=== PATIENT | male | born 1965 | race Caucasian/White ===

== ENCOUNTER → 2016-06-28 | Outpatient (REF) | payer MEDICARE, OTHER ==
[~2016-06-28] MED LIST: /CELE20CA PO; AMBI10TA PO; BIFLEX; CALCIUM CITRATE PO; FERR325T PO; FLEXERIL PO; LIDO5DIS; NEUR300C; NEUR300C PO; PRIL20CA PO; SKEL800T5; THERGRAN; THERGRAN PO; TYLENOL PM PO; VICO5TAB PO; VITAMIN; VITAMIN D PO; VITAMIN D50000 UNT; WELL100T PO; ZOLO50TA PO; [UNRECOGNIZED DRUG - CODE] PO
== END ==
LOC: M SFHCPLAZ 11:25
PROVIDERS: ATTEND Family Medicine
DX: E78.2 Mixed hyperlipidemia (principal); I10 Essential (primary) hypertension; Z53.8 Procedure and treatment not carried out for other reasons

== ENCOUNTER → 2016-07-03 | Outpatient (CLI) | payer MEDICARE, OTHER ==
[2016-07-03 11:49] LABS: ALKALINE PHOSPHATASE 91 U/L (45-117); ALT/SGPT 21 U/L (12-78); ANION GAP 9 MEQ/L (8-16); AST/SGOT 14 U/L (15-37); BILIRUBIN,TOTAL 0.6 MG/DL (0.2-1.0); BLOOD UREA NITROGEN 14 MG/DL (7-18); CALCIUM LEVEL 8.6 MG/DL (8.5-10.1); CARBON DIOXIDE LEVEL 25 MEQ/L (21-32); CHLORIDE LEVEL 111 MEQ/L (98-107); CHOLESTEROL LEVEL 187 MG/DL (<200); CREATININE FOR GFR 1.26 MG/DL (0.70-1.30); GLOMERULAR FILTRATION RATE > 60.0 (>56); GLUCOSE, FASTING 87 MG/DL (70-105); POTASSIUM SERUM 4.4 MEQ/L (3.5-5.1); SODIUM LEVEL 145 MEQ/L (136-145); TRIGLYCERIDES LEVEL 127 MG/DL (<150)
[2016-07-03 11:50] LABS: ALBUMIN 4.1 GM/DL (3.2-5.2); ALBUMIN/GLOBULIN RATIO 1.64 (1.00-1.93); MAGNESIUM LEVEL 1.9 MG/DL (1.8-2.4); TOTAL PROTEIN 6.6 GM/DL (6.4-8.2)
== END | disposition home or self-care (01) ==
LOC: M LAB 10:12
PROVIDERS: ATTEND Family Medicine
DX: E78.2 Mixed hyperlipidemia (principal); I10 Essential (primary) hypertension

== ENCOUNTER → 2016-11-11 | Outpatient (REF) | payer MEDICARE, OTHER ==
[2016-11-11 14:09] LABS: ALBUMIN 3.8 GM/DL (3.2-5.2); ALBUMIN/GLOBULIN RATIO 1.46 (1.00-1.93); ALKALINE PHOSPHATASE 91 U/L (45-117); ALT/SGPT 25 U/L (12-78); ANION GAP 7 MEQ/L (8-16); AST/SGOT 16 U/L (15-37); BILIRUBIN,TOTAL 0.5 MG/DL (0.2-1.0); BLOOD UREA NITROGEN 15 MG/DL (7-18); CALCIUM LEVEL 8.6 MG/DL (8.5-10.1); CARBON DIOXIDE LEVEL 26 MEQ/L (21-32); CHLORIDE LEVEL 110 MEQ/L (98-107); CREATININE FOR GFR 1.22 MG/DL (0.70-1.30); GLOMERULAR FILTRATION RATE > 60.0 (>56); GLUCOSE, FASTING 80 MG/DL (70-105); POTASSIUM SERUM 4.4 MEQ/L (3.5-5.1); SODIUM LEVEL 143 MEQ/L (136-145); TOTAL PROTEIN 6.4 GM/DL (6.4-8.2)
[2016-11-11 14:27] LABS: BASO % 0.7 % (0.0-1.0); EOS # 0.2 K/mm3 (0.0-0.50); EOS % 2.6 % (0.0-3.0); LARGE UNSTAINED CELL # 0.2 K/mm3 (0.0-0.4); LARGE UNSTAINED CELL % 2.3 % (0.0-4.0); LYMPH # 1.7 K/mm3 (1.5-4.5); LYMPH % 26.9 % (24.0-44.0); MEAN CORPUSCULAR HEMOGLOBIN 32.6 pg (27.0-33.0); MEAN CORPUSCULAR HGB CONC 33.6 g/dl (32.0-36.5); MONO # 0.5 K/mm3 (0.0-0.8); MONO % 7.3 % (0.0-5.0); NEUTROPHILS # 3.8 K/mm3 (1.8-7.7); NEUTROPHILS % 60.2 % (36.0-66.0); PLATELET COUNT, AUTOMATED 203 k/mm3 (150-450); RED CELL DISTRIBUTION WIDTH 12.3 % (11.5-14.5); WHITE BLOOD COUNT 6.3 K/mm3 (4.0-10.0)
== END ==
LOC: M SFHCPLAZ 10:31
PROVIDERS: ATTEND Family Medicine
DX: E78.2 Mixed hyperlipidemia (principal); Z12.5 Encounter for screening for malignant neoplasm of prostate; E55.9 Vitamin D deficiency, unspecified; Z79.899 Other long term (current) drug therapy
CPT/HCPCS: 80053; 82306; 83036; 83970; 85025; 86803; G0103; G0463

== ENCOUNTER → 2016-12-31 | Outpatient (CLI) | payer MEDICARE, BC, OTHER ==
[~2016-12-31] VITALS: Ht 177.8 cm; Wt 117.9 kg
[~2016-12-31] MED LIST changes: +AZEL0.1S3; +BUPR150T3 PO; +CARV3.12 PO; +D 50CAP PO; +FERR325T3 PO; +LIDOCAINE 2% INJ 100 MG/5 ML SDV (FOR ANES.) As Ordered ONE; +LYRI150C PO; +MOVA1TAB2 PO; +NS 1,000 ML IV ONE; +OMEP40CA2 PO; +PERC10TA26 PO; +PROPOFOL 500 MG/50 ML VIAL As Ordered ONE; +RIZA5TAB PO; +SERT-138 PO; +SERT50TA PO; +TIZA4CAP3 PO; +VITA10002 PO; +ZOLP10TA2 PO
--- NOTE | 2016-12-31 13:22 | ROOR ---
Patient Name: Jamaal Kilgore Procedure Date: 12/31/2016 12:48 PM Date of : 1965 Age: 51 Room: [facility] Gender: Male Note Status: Finalized Procedure: Colonoscopy Indications: Screening for colorectal malignant neoplasm Providers: Harjeet JACKSON MD Referring MD: Abhijit Briceño MD Requesting Provider: Medicines: Monitored Anesthesia Care Complications: No immediate complications. Procedure: Pre-Anesthesia Assessment: - The heart rate, respiratory rate, oxygen saturations, blood pressure, adequacy of pulmonary ventilation, and response to care were monitored throughout the procedure. The Colonoscope was introduced through the anus and advanced to the cecum, identified by appendiceal orifice and ileocecal valve. The colonoscopy was performed without difficulty. The patient tolerated the procedure well. The quality of the bowel preparation was good. Findings: The perianal and digital rectal examinations were normal. Two sessile polyps were found in the ascending colon and cecum. The polyps were 2 to 4 mm in size. These polyps were removed with a cold snare. Resection and retrieval were complete. A 5 mm polyp was found in the rectum. The polyp was sessile. The polyp was removed with a cold snare. Resection and retrieval were complete. To stop active bleeding, two hemostatic clips were successfully placed. There was no bleeding at the end of the procedure. Internal hemorrhoids were found during retroflexion. The hemorrhoids were medium-sized. The exam was otherwise without abnormality on direct and retroflexion views. Impression: - Two 2 to 4 mm polyps in the ascending colon and in the cecum, removed with a cold snare. Resected and retrieved. - One 5 mm polyp in the rectum, removed with a cold snare. Resected and retrieved. Clips were placed. - Internal hemorrhoids. - The colonoscopy was otherwise normal on direct and retroflexion views. Recommendation: - Telephone endoscopist for pathology results in 2 weeks. - If the pathology report reveals adenomatous tissue, then repeat the colonoscopy for surveillance in 3 years. - If the pathology report indicates hyperplastic polyp, then repeat colonoscopy for screening purposes in 10 years. Harjeet Jackson MD Harjeet JACKSON MD 12/31/2016 1:22:17 PM This report has been signed electronically. Number of Addenda: 0 Note Initiated On: 12/31/2016 12:48 PM Estimated Blood Loss: Estimated blood loss: none.
[2016-12-31 13:42] VITALS: BP 124/80
== END ==
LOC: M OPP 11:18
PROVIDERS: ATTEND Internal Medicine Gastroenterology
DX: Z12.11 Encounter for screening for malignant neoplasm of colon (principal); D12.2 Benign neoplasm of ascending colon; D12.0 Benign neoplasm of cecum; D12.8 Benign neoplasm of rectum; K64.8 Other hemorrhoids; I10 Essential (primary) hypertension; G47.30 Sleep apnea, unspecified; K21.9 Gastro-esophageal reflux disease without esophagitis; K59.04 Chronic idiopathic constipation; G43.909 Migraine, unspecified, not intractable, without status migrainosus; F32.9 Major depressive disorder, single episode, unspecified; F41.9 Anxiety disorder, unspecified; M13.89 Other specified arthritis, multiple sites; Z98.84 Bariatric surgery status; Z79.891 Long term (current) use of opiate analgesic; Z79.899 Other long term (current) drug therapy; Z88.0 Allergy status to penicillin; Z88.5 Allergy status to narcotic agent; Z88.1 Allergy status to other antibiotic agents

== ENCOUNTER → 2017-04-01 | Outpatient (CLI) | payer MEDICARE, BC, OTHER ==
[~2017-04-01] MED LIST changes: -LIDOCAINE 2% INJ 100 MG/5 ML SDV (FOR ANES.) As Ordered ONE; -NS 1,000 ML IV ONE; -PROPOFOL 500 MG/50 ML VIAL As Ordered ONE
[2017-04-01 15:08] LABS: BASO % 0.6 % (0.0-1.0); EOS # 0.1 10^3/uL (0.0-0.50); EOS % 1.8 % (0.0-3.0); IMMATURE GRANULOCYTE % 0.1 % (0-0); LYMPH # 1.7 10^3/uL (1.5-4.5); LYMPH % 25.5 % (24.0-44.0); MEAN CORPUSCULAR HEMOGLOBIN 31.7 pg (27.0-33.0); MEAN CORPUSCULAR HGB CONC 33.8 g/dl (32.0-36.5); MEAN CORPUSCULAR VOLUME 93.9 fl (80.0-96.0); MONO # 0.7 10^3/uL (0.0-0.8); MONO % 9.8 % (0.0-5.0); NEUTROPHILS # 4.2 10^3/uL (1.8-7.7); NEUTROPHILS % 62.2 % (36.0-66.0); PLATELET COUNT, AUTOMATED 180 10^3/uL (150-450); RED CELL DISTRIBUTION WIDTH 12.1 % (11.5-14.5); WHITE BLOOD COUNT 6.7 10^3/uL (4.0-10.0)
[2017-04-01 16:23] LABS: ALBUMIN/GLOBULIN RATIO 1.54 (1.00-1.93); ALKALINE PHOSPHATASE 97 U/L (45-117); ALT/SGPT 23 U/L (12-78); ANION GAP 8 MEQ/L (8-16); AST/SGOT 14 U/L (15-37); BILIRUBIN,TOTAL 0.6 MG/DL (0.2-1.0); BLOOD UREA NITROGEN 15 MG/DL (7-18); CALCIUM LEVEL 8.9 MG/DL (8.5-10.1); CARBON DIOXIDE LEVEL 27 MEQ/L (21-32); CHLORIDE LEVEL 107 MEQ/L (98-107); CREATININE FOR GFR 1.09 MG/DL (0.70-1.30); GLOMERULAR FILTRATION RATE > 60.0 (>56); GLUCOSE, FASTING 79 MG/DL (70-105); POTASSIUM SERUM 4.6 MEQ/L (3.5-5.1); SODIUM LEVEL 142 MEQ/L (136-145); TOTAL PROTEIN 6.6 GM/DL (6.4-8.2)
== END ==
LOC: M WUC 14:03
PROVIDERS: ATTEND Family Medicine
DX: E78.2 Mixed hyperlipidemia (principal); Z12.5 Encounter for screening for malignant neoplasm of prostate; E55.9 Vitamin D deficiency, unspecified
CPT/HCPCS: 36415; 80053; 82306; 83036; 83970; 85025; 86803; G0103

== ENCOUNTER → 2017-07-28 | Outpatient (CLI) | payer OTHER ==
[~2017-07-28] MED LIST changes: -/CELE20CA PO; -AMBI10TA PO; -AZEL0.1S3; -BIFLEX; -BUPR150T3 PO; -CALCIUM CITRATE PO; -CARV3.12 PO; -D 50CAP PO; -FERR325T PO; -FERR325T3 PO; -FLEXERIL PO; -LIDO5DIS; -LYRI150C PO; -MOVA1TAB2 PO; -NEUR300C; -NEUR300C PO; -OMEP40CA2 PO; -PERC10TA26 PO; -PRIL20CA PO; +PROHANCE 279.3MG/ML 15ML VIAL (A9576) As Ordered; +PROHANCE 279.3MG/ML 5ML VIAL (A9576) As Ordered; -RIZA5TAB PO; -SERT-138 PO; -SERT50TA PO; -SKEL800T5; -THERGRAN; -THERGRAN PO; -TIZA4CAP3 PO; -TYLENOL PM PO; -VICO5TAB PO; -VITA10002 PO; -VITAMIN; -VITAMIN D PO; -VITAMIN D50000 UNT; -WELL100T PO; -ZOLO50TA PO; -ZOLP10TA2 PO; -[UNRECOGNIZED DRUG - CODE] PO
== END ==
LOC: M RAD 10:58
DX: M48.10 Ankylosing hyperostosis [Forestier], site unspecified (principal)

== ENCOUNTER → 2017-08-13 | Outpatient (CLI) | payer MEDICARE, OTHER ==
[2017-08-13 20:04] LABS: BASO # 0.1 10^3/uL (0.0-0.2); BASO % 0.7 % (0.0-1.0); EOS # 0.1 10^3/uL (0.0-0.50); EOS % 1.6 % (0.0-3.0); HEMATOCRIT 47.6 % (42.0-52.0); HEMOGLOBIN 15.5 g/dl (14.0-18.0); IMMATURE GRANULOCYTE % 0.3 % (0-3.0); LYMPH # 2.1 10^3/uL (1.5-4.5); LYMPH % 24.3 % (24.0-44.0); MEAN CORPUSCULAR HEMOGLOBIN 30.9 pg (27.0-33.0); MEAN CORPUSCULAR HGB CONC 32.6 g/dl (32.0-36.5); MONO # 0.7 10^3/uL (0.0-0.8); MONO % 7.8 % (0.0-5.0); NEUTROPHILS # 5.7 10^3/uL (1.8-7.7); NEUTROPHILS % 65.3 % (36.0-66.0); PLATELET COUNT, AUTOMATED 264 10^3/uL (150-450); RED BLOOD COUNT 5.01 10^6/uL (4.30-6.10); RETIC HEMOGLOBIN EQUIVALENT 37.4 pg (24-36); RETICULOCYTE # 67.1 10^9/L (17-77); RETICULOCYTE % 1.3 % (0.5-1.5); WHITE BLOOD COUNT 8.8 10^3/uL (4.0-10.0)
[2017-08-13 20:05] LABS: HEMATOCRIT 47.6 % (42.0-52.0)
[2017-08-13 20:41] LABS: VITAMIN B12 LEVEL 1245 PG/ML (247-911)
[2017-08-13 20:43] LABS: ALBUMIN 4.4 GM/DL (3.2-5.2); ALBUMIN/GLOBULIN RATIO 1.52 (1.00-1.93); ALKALINE PHOSPHATASE 104 U/L (45-117); ALT/SGPT 26 U/L (12-78); ANION GAP 7 MEQ/L (8-16); AST/SGOT 18 U/L (7-37); BILIRUBIN,TOTAL 0.5 MG/DL (0.2-1.0); BLOOD UREA NITROGEN 14 MG/DL (7-18); CARBON DIOXIDE LEVEL 29 MEQ/L (21-32); CHLORIDE LEVEL 105 MEQ/L (98-107); CREATININE FOR GFR 1.11 MG/DL (0.70-1.30); FREE T4 0.85 NG/DL (0.76-1.46); GLOMERULAR FILTRATION RATE > 60.0 (>56); GLUCOSE, FASTING 85 MG/DL (70-100); MAGNESIUM LEVEL 1.9 MG/DL (1.8-2.4); POTASSIUM SERUM 4.4 MEQ/L (3.5-5.1); SODIUM LEVEL 141 MEQ/L (136-145); TOTAL PROTEIN 7.3 GM/DL (6.4-8.2)
[2017-08-15 13:03] LABS: PRETREATED FOLATE FOR RBCFOL 10.1 NG/ML; RBC FOLATE 445.6 NG/ML (280-791)
== END ==
LOC: M WUC 15:45
DX: E53.8 Deficiency of other specified B group vitamins (principal); D50.9 Iron deficiency anemia, unspecified; I10 Essential (primary) hypertension; E78.2 Mixed hyperlipidemia; M47.816 Spondylosis without myelopathy or radiculopathy, lumbar region; Z98.84 Bariatric surgery status
CPT/HCPCS: 83735

== ENCOUNTER → 2017-12-04 | Outpatient (CLI) | payer MEDICARE, BC, OTHER ==
[2017-12-04 17:05] LABS: ALBUMIN/GLOBULIN RATIO 1.38 (1.00-1.93); ALKALINE PHOSPHATASE 101 U/L (45-117); ALT/SGPT 26 U/L (12-78); ANION GAP 9 MEQ/L (8-16); AST/SGOT 15 U/L (7-37); BILIRUBIN,TOTAL 0.4 MG/DL (0.2-1.0); BLOOD UREA NITROGEN 13 MG/DL (7-18); CALCIUM LEVEL 8.5 MG/DL (8.5-10.1); CARBON DIOXIDE LEVEL 26 MEQ/L (21-32); CHLORIDE LEVEL 109 MEQ/L (98-107); CHOLESTEROL LEVEL 193 MG/DL (<200); CHOLESTEROL RISK RATIO 3.385 (<5); CPK CREATINE PHOSPHOKINASE 99 U/L (39-308); CREATININE FOR GFR 1.11 MG/DL (0.70-1.30); GLOMERULAR FILTRATION RATE > 60.0 (>56); GLUCOSE, FASTING 97 MG/DL (70-100); HDL CHOLESTEROL 57 MG/DL (>40); LDL CHOLESTEROL 110.8 MG/DL (<100); NON-HDL-C 136 MG/DL; POTASSIUM SERUM 4.5 MEQ/L (3.5-5.1); PSA SCREENING 1.31 NG/ML (< 4.0); SODIUM LEVEL 144 MEQ/L (136-145); TOTAL PROTEIN 6.9 GM/DL (6.4-8.2); TRIGLYCERIDES LEVEL 126 MG/DL (<150); URIC ACID 5.9 MG/DL (3.5-7.2)
[2017-12-04 17:10] LABS: PTH INTACT 140.2 PG/ML (18.5-88.0); TOTAL 25(OH) VITAMIN D 36.5 NG/ML (30.0-100.0)
[2017-12-04 17:11] LABS: VITAMIN B12 LEVEL 754 PG/ML (247-911)
[2017-12-07 00:10] LABS: AMPHETAMINE SCREEN, URINE Negative ng/mL (Cutoff=1000); BARBITURATES SCREEN, URINE Negative ng/mL (Cutoff=200); BENZODIAZEPINES, URINE SCREEN Negative ng/mL (Cutoff=200); CANNABINOID SCREEN, URINE Negative ng/mL (Cutoff=20); COCAINE SCREEN, URINE Negative ng/mL (Cutoff=300); CREATININE, URINE 135.9 mg/dL (20.0-300.0); FENTANYL URINE SCREEN Negative pg/mL (Cutoff=2000); METHADONE, URINE SCREEN Negative ng/mL (Cutoff=300); OPIATE SCREEN, URINE Negative ng/mL (Cutoff=300); OXYCODONE, SCREEN, URINE Negative ng/mL (Cutoff=100); PCP SCREEN, URINE Negative ng/mL (Cutoff=25); SPECIFIC GRAVITY, URINE 1.018 (.)
== END ==
LOC: M LAB 16:02
DX: E78.2 Mixed hyperlipidemia (principal); N18.2 Chronic kidney disease, stage 2 (mild); Z12.5 Encounter for screening for malignant neoplasm of prostate; E55.9 Vitamin D deficiency, unspecified; M79.641 Pain in right hand; E53.8 Deficiency of other specified B group vitamins; G47.00 Insomnia, unspecified; Z68.36 Body mass index [BMI] 36.0-36.9, adult
CPT/HCPCS: 82550

== ENCOUNTER → 2018-04-07 | Outpatient (REF) | payer MEDICARE, OTHER ==
[2018-04-07 15:53] LABS: BASO # 0.1 10^3/uL (0.0-0.2); BASO % 0.9 % (0.0-1.0); EOS # 0.2 10^3/uL (0.0-0.50); EOS % 2.5 % (0.0-3.0); HEMATOCRIT 45.7 % (42.0-52.0); HEMOGLOBIN 15.4 g/dl (13.5-17.5); IMMATURE GRANULOCYTE % 0.1 % (0-3.0); LYMPH # 1.9 10^3/uL (1.5-4.5); LYMPH % 27.4 % (24.0-44.0); MEAN CORPUSCULAR HEMOGLOBIN 31.8 pg (27.0-33.0); MEAN CORPUSCULAR HGB CONC 33.7 g/dl (32.0-36.5); MEAN CORPUSCULAR VOLUME 94.4 fl (80.0-96.0); MONO # 0.5 10^3/uL (0.0-0.8); MONO % 6.7 % (0.0-5.0); NEUTROPHILS # 4.3 10^3/uL (1.8-7.7); NEUTROPHILS % 62.4 % (36.0-66.0); PLATELET COUNT, AUTOMATED 211 10^3/uL (150-450); RED BLOOD COUNT 4.84 10^6/uL (4.30-6.10); RED CELL DISTRIBUTION WIDTH 12.3 % (11.5-14.5); RETIC HEMOGLOBIN EQUIVALENT 35.7 pg (24-36); RETICULOCYTE # 56.6 10^9/L (17-77); RETICULOCYTE % 1.2 % (0.5-1.5); WHITE BLOOD COUNT 6.9 10^3/uL (4.0-10.0)
[2018-04-07 15:56] LABS: HEMATOCRIT 45.7 % (42.0-52.0)
[2018-04-07 16:26] LABS: ALBUMIN 4.5 GM/DL (3.2-5.2); ALKALINE PHOSPHATASE 107 U/L (45-117); ALT/SGPT 23 U/L (12-78); ANION GAP 5 MEQ/L (8-16); AST/SGOT 17 U/L (7-37); BILIRUBIN,TOTAL 0.5 MG/DL (0.2-1.0); BLOOD UREA NITROGEN 11 MG/DL (7-18); C REACTIVE PROTEIN QUANTITATIV < 0.30 MG/DL (0.00-0.30); CALCIUM LEVEL 9.1 MG/DL (8.5-10.1); CARBON DIOXIDE LEVEL 29 MEQ/L (21-32); CHLORIDE LEVEL 108 MEQ/L (98-107); CHOLESTEROL LEVEL 194 MG/DL (<200); CHOLESTEROL RISK RATIO 3.592 (<5); CPK CREATINE PHOSPHOKINASE 97 U/L (39-308); CREATININE FOR GFR 1.07 MG/DL (0.70-1.30); ESTIMATED AVERAGE GLUCOSE 97 MG/DL (60-110); GLOMERULAR FILTRATION RATE > 60.0 (>56); GLUCOSE, FASTING 78 MG/DL (70-100); HDL CHOLESTEROL 54 MG/DL (>40); LDL CHOLESTEROL 110 MG/DL (<100); MAGNESIUM LEVEL 2.1 MG/DL (1.8-2.4); NON-HDL-C 140 MG/DL; POTASSIUM SERUM 4.9 MEQ/L (3.5-5.1); SODIUM LEVEL 142 MEQ/L (136-145); TRIGLYCERIDES LEVEL 151 MG/DL (<150)
[2018-04-07 17:00] LABS: PTH INTACT 93.8 PG/ML (18.5-88.0); TOTAL 25(OH) VITAMIN D 30.3 NG/ML (30.0-100.0)
== END ==
LOC: M SFHCPLAZ 13:44
DX: E55.9 Vitamin D deficiency, unspecified (principal); I12.9 Hypertensive chronic kidney disease with stage 1 through stage 4 chronic kidney disease, or unspecified chronic kidney disease; N18.2 Chronic kidney disease, stage 2 (mild); E78.2 Mixed hyperlipidemia; Z79.899 Other long term (current) drug therapy
CPT/HCPCS: 82550

== ENCOUNTER → 2018-04-07 | Outpatient (CLI) | payer MEDICARE, OTHER | LOC: M WUC 15:03 | DX: M47.24 Other spondylosis with radiculopathy, thoracic region (principal); M25.78 Osteophyte, vertebrae; E55.9 Vitamin D deficiency, unspecified; I12.9 Hypertensive chronic kidney disease with stage 1 through stage 4 chronic kidney disease, or unspecified chronic kidney disease; N18.2 Chronic kidney disease, stage 2 (mild); E78.2 Mixed hyperlipidemia; Z79.899 Other long term (current) drug therapy; Z23 Encounter for immunization | CPT/HCPCS: 72072; 82550 ==

== ENCOUNTER → 2018-04-29 | Outpatient (CLI) | payer MEDICARE, BC, OTHER | LOC: M RAD 17:46 | DX: M47.24 Other spondylosis with radiculopathy, thoracic region (principal); M51.24 Other intervertebral disc displacement, thoracic region | CPT/HCPCS: 72146 ==

== ENCOUNTER 2018-08-23 13:14 | Emergency (ER) | payer MEDICARE, BC, OTHER ==
[~2018-08-23] VITALS: Ht 177.8 cm; Wt 113.6 kg
[~2018-08-23 13:14] MED LIST changes: +/CELE20CA PO; +AMBI10TA PO; +AZEL0.1S3; +BIFLEX; +BUPR150T3 PO; +CALCIUM CITRATE PO; +CARV3.12 PO; +D 50CAP PO; +FERR325T PO; +FERR325T3 PO; +FLEXERIL PO; +LIDO5DIS; +LYRI150C PO; +MOVA1TAB2 PO; +NEUR300C; +NEUR300C PO; +OMEP40CA2 PO; +PERC10TA26 PO; +PRIL20CA PO; -PROHANCE 279.3MG/ML 15ML VIAL (A9576) As Ordered; -PROHANCE 279.3MG/ML 5ML VIAL (A9576) As Ordered; +RIZA5TAB PO; +SERT-138 PO; +SERT50TA PO; +SKEL800T5; +THERGRAN; +THERGRAN PO; +TIZA4CAP PO; +TYLENOL PM PO; +VICO5TAB PO; +VITA10002 PO; +VITAMIN; +VITAMIN D PO; +VITAMIN D50000 UNT; +WELL100T PO; +ZOLO50TA PO; +ZOLP10TA2 PO; +[UNRECOGNIZED DRUG - CODE] PO
[2018-08-23] MEDS ORDERED: RAMI1CAP24 PO (13:27)
[2018-08-23] MEDS ORDERED: MORPHINE 4 MG/ML 1ML VIAL/SYRINGE (J2270) IV ONE ×2 (13:45→16:00)
[2018-08-23] MEDS ORDERED: GI COCKTAIL 50ML BTL(HYOSCYAMINE/MAALOX/LIDOCAINE VISCOUS)(1:3:1) PO ONE (13:45)
--- NOTE | 2018-08-23 13:50 | REP ---
Chest one-view HISTORY: Chest pain Comparison: 03/09/2015 The lungs are clear. The heart is normal in size. The pulmonary vasculature is normal in appearance. Impression: No acute disease. Electronically Signed by Chaz Jones MD 08/23/2018 01:42 P
[2018-08-23 14:26] LABS: BASO % 0.4 % (0.0-1.0); EOS # 0.2 10^3/uL (0.0-0.50); EOS % 2.1 % (0.0-3.0); HEMATOCRIT 42.8 % (42.0-52.0); HEMOGLOBIN 14.3 g/dl (13.5-17.5); LYMPH # 1.8 10^3/uL (1.5-4.5); MEAN CORPUSCULAR HEMOGLOBIN 31.4 pg (27.0-33.0); MEAN CORPUSCULAR HGB CONC 33.4 g/dl (32.0-36.5); MEAN CORPUSCULAR VOLUME 94.1 fl (80.0-96.0); MONO # 0.5 10^3/uL (0.0-0.8); NEUTROPHILS # 4.5 10^3/uL (1.8-7.7); NEUTROPHILS % 64.4 % (36.0-66.0); PLATELET COUNT, AUTOMATED 184 10^3/uL (150-450); RED BLOOD COUNT 4.55 10^6/uL (4.30-6.10)
[2018-08-23 14:53] LABS: BLOOD UREA NITROGEN 14 MG/DL (7-18); CALCIUM LEVEL 8.7 MG/DL (8.5-10.1); CARBON DIOXIDE LEVEL 28 MEQ/L (21-32); CHLORIDE LEVEL 108 MEQ/L (98-107); CPK CREATINE PHOSPHOKINASE 129 U/L (39-308); CREATININE FOR GFR 1.07 MG/DL (0.70-1.30); GLOMERULAR FILTRATION RATE > 60.0 (>56); GLUCOSE, FASTING 92 MG/DL (70-100); MB/CK RELATIVE INDEX 1.24 (< OR =4); POTASSIUM SERUM 4.5 MEQ/L (3.5-5.1); SODIUM LEVEL 141 MEQ/L (136-145); TROPONIN I < 0.02 NG/ML (< 0.10)
[2018-08-23] MEDS ORDERED: ISOVUE-370 76% 125ML VIAL (Q9967 PER ML) As Ordered ONE (14:55)
[2018-08-23 15:21] LABS: ALBUMIN 4.2 GM/DL (3.2-5.2); ALT/SGPT 22 U/L (12-78); BILIRUBIN,DIRECT 0.2 MG/DL (0.0-0.2); BILIRUBIN,TOTAL 0.5 MG/DL (0.2-1.0); LIPASE 129 U/L (73-393); TOTAL PROTEIN 6.8 GM/DL (6.4-8.2)
[2018-08-23 19:38] LABS: CPK CREATINE PHOSPHOKINASE 108 U/L (39-308); MB/CK RELATIVE INDEX 1.11 (< OR =4); TROPONIN I < 0.02 NG/ML (< 0.10)
[2018-08-23] MEDS ORDERED: PERCOCET 5MG/325MG TAB PO ONE (19:45)
[2018-08-23 20:22] VITALS: BP 114/79
--- NOTE | 2018-08-24 06:57 | REP ---
CT ANGIO CHEST: HISTORY: Chest pain. CONTRAST: Isovue 370, 75 mL. COMPARISON: 03/09/2015. There are no filling defects in the main , right and left pulmonary arteries or their branches. The lungs are clear. There is no pleural effusion. The heart is normal in size. There is no aneurysm. Degenerative change is present in the spine. The patient is status post cholecystectomy. There is postoperative change in the stomach. IMPRESSION: There is no pulmonary embolism. Electronically Signed by Chaz Jones MD 08/24/2018 07:27 A
--- NOTE | 2018-08-26 00:28 | ECGEPIP ---
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 NO REMARKABLE CHANGES Electronically Signed On 08-26-2018 0:28:26 EDT by Victorino Benjamin
== END 2018-08-23 20:28 | disposition home or self-care (01) ==
LOC: M ED 13:14
DX: R07.89 Other chest pain (principal); I10 Essential (primary) hypertension; E78.5 Hyperlipidemia, unspecified; K21.9 Gastro-esophageal reflux disease without esophagitis; Z79.899 Other long term (current) drug therapy; Z88.0 Allergy status to penicillin; Z88.1 Allergy status to other antibiotic agents; Z88.5 Allergy status to narcotic agent; Z88.8 Allergy status to other drugs, medicaments and biological substances
CPT/HCPCS: 36415; 71045; 71275; 80048; 80076; 82550; 82553; 83690; 84484; 85025; 93005; 93041; 94760; 96374; 96376; 99285; J2270; Q9967

== ENCOUNTER → 2018-09-03 | Outpatient (REF) | payer MEDICARE, OTHER ==
[~2018-09-03] MED LIST changes: -/CELE20CA PO; +CELE1CAP4 PO; +RAMI1CAP24 PO; +SERT-141 PO; -SERT50TA PO
[2018-09-03 14:35] LABS: ALBUMIN 4.1 GM/DL (3.2-5.2); ALT/SGPT 20 U/L (12-78); BILIRUBIN,TOTAL 0.5 MG/DL (0.2-1.0); BLOOD UREA NITROGEN 11 MG/DL (7-18); CALCIUM LEVEL 8.9 MG/DL (8.5-10.1); CARBON DIOXIDE LEVEL 26 MEQ/L (21-32); CHLORIDE LEVEL 107 MEQ/L (98-107); CREATININE FOR GFR 1.02 MG/DL (0.70-1.30); FREE T4 0.81 NG/DL (0.76-1.46); GLOMERULAR FILTRATION RATE > 60.0 (>56); GLUCOSE, FASTING 80 MG/DL (70-100); POTASSIUM SERUM 4.7 MEQ/L (3.5-5.1); PTH INTACT 89.7 PG/ML (18.5-88.0); SODIUM LEVEL 139 MEQ/L (136-145); TOTAL 25(OH) VITAMIN D 56.4 NG/ML (30.0-100.0); TOTAL PROTEIN 6.9 GM/DL (6.4-8.2)
[2018-09-07 14:14] LABS: INSULIN LEVEL 9.4 uIU/mL (2.6-24.9); VITAMIN B1 LEVEL WHOLE BLOOD 267.2 nmol/L (66.5-200.0)
== END ==
LOC: M SFHCPLAZ 12:50
PROVIDERS: ATTEND Family Medicine
DX: E78.2 Mixed hyperlipidemia (principal); I10 Essential (primary) hypertension; E55.9 Vitamin D deficiency, unspecified; Z98.84 Bariatric surgery status; Z79.899 Other long term (current) drug therapy
CPT/HCPCS: 36415; 80053; 82306; 83525; 83970; 84425; 84439; 84443; 84630; G0463

== ENCOUNTER 2018-12-01 17:00 | Emergency (ER) | payer MEDICARE, BC, OTHER ==
[~2018-12-01] VITALS: Ht 177.8 cm; Wt 111.4 kg
[2018-12-01] MEDS ORDERED: INFANRIX VACCINE SYRINGE (DIPHTH/TET/ACEL PERTUS PEDIATRIC) (CPT 90700) IM ONE (18:00)
[2018-12-01] MEDS ORDERED: LIDOCAINE 1% MDV 20ML VIAL IM ONE (18:00)
[2018-12-01] MEDS ORDERED: ADACEL/BOOSTRIX VACCINE (DIPHTH/PERTUSS/ACELL/TETANUS)0.5ML SYR (90715) IM ONE (18:15)
--- NOTE | 2018-12-01 18:21 | REP ---
Clinical: Pain. Technique: AP, lateral, bilateral oblique views of the right hand. Findings: A very subtle nondisplaced fracture of the scaphoid bone based on subtle cortical irregularity on the oblique image 2 of 4 cannot be excluded and should be correlated clinically. Remainder examination demonstrates generalized age-related findings. Evidence for old fifth metacarpal bone fracture noted. Findings: Cannot exclude very subtle nondisplaced scaphoid waist fracture. Electronically Signed by Sebastian Casas MD 12/01/2018 06:13 P
[2018-12-01] MEDS ORDERED: DOXY100C37 PO (19:09)
[2018-12-01 19:15] VITALS: BP 117/70
== END 2018-12-01 19:20 | disposition home or self-care (01) ==
LOC: M ED 17:00
DX: S62.011A Displaced fracture of distal pole of navicular [scaphoid] bone of right wrist, initial encounter for closed fracture (principal); S60.414A Abrasion of right ring finger, initial encounter; S61.212A Laceration without foreign body of right middle finger without damage to nail, initial encounter; W23.0XXA Caught, crushed, jammed, or pinched between moving objects, initial encounter; Y92.018 Other place in single-family (private) house as the place of occurrence of the external cause; I10 Essential (primary) hypertension; Z79.899 Other long term (current) drug therapy; Z88.0 Allergy status to penicillin; Z88.1 Allergy status to other antibiotic agents; Z88.8 Allergy status to other drugs, medicaments and biological substances

== ENCOUNTER → 2019-01-05 | Outpatient (REF) | payer MEDICARE, OTHER ==
[~2019-01-05] MED LIST changes: +CYAN100049 PO; +DOXY100C37 PO; -VITA10002 PO
[2019-01-05 11:42] LABS: BASO # 0.1 10^3/uL (0.0-0.2); BASO % 0.7 % (0.0-1.0); EOS # 0.1 10^3/uL (0.0-0.50); EOS % 1.4 % (0.0-3.0); LYMPH # 1.9 10^3/uL (1.5-4.5); LYMPH % 25.3 % (24.0-44.0); MEAN CORPUSCULAR HEMOGLOBIN 30.8 pg (27.0-33.0); MEAN CORPUSCULAR HGB CONC 32.6 g/dl (32.0-36.5); MEAN CORPUSCULAR VOLUME 94.7 fl (80.0-96.0); MONO # 0.6 10^3/uL (0.0-0.8); MONO % 8.4 % (0.0-5.0); NEUTROPHILS # 4.7 10^3/uL (1.8-7.7); NEUTROPHILS % 63.8 % (36.0-66.0); PLATELET COUNT, AUTOMATED 165 10^3/uL (150-450); RED BLOOD COUNT 4.54 10^6/uL (4.30-6.10); WHITE BLOOD COUNT 7.4 10^3/uL (4.0-10.0)
[2019-01-05 12:31] LABS: C REACTIVE PROTEIN QUANTITATIV < 0.30 MG/DL (0.00-0.30); CHOLESTEROL LEVEL 160 MG/DL (<200); CHOLESTEROL RISK RATIO 3.076 (<5); HDL CHOLESTEROL 52 MG/DL (>40); LDL CHOLESTEROL 86 MG/DL (<100); NON-HDL-C 108 MG/DL; TRIGLYCERIDES LEVEL 109 MG/DL (<150); VITAMIN B12 LEVEL 311 PG/ML (247-911)
== END ==
LOC: M SFHCPLAZ 10:00
PROVIDERS: ATTEND Family Medicine
DX: E53.8 Deficiency of other specified B group vitamins (principal); Z12.5 Encounter for screening for malignant neoplasm of prostate; E78.2 Mixed hyperlipidemia
CPT/HCPCS: 36415; 80061; 82607; 85025; 85046; 86140; G0103; G0463

== ENCOUNTER → 2019-01-14 | Outpatient (CLI) | payer MEDICARE, BC, OTHER ==
--- NOTE | 2019-01-19 19:56 | SLEEPHOME ---
DATE OF PROCEDURE: 01/14/2019 ORDERED BY: Dr. Briceño Diagnostic home sleep testing was performed due to concern for the obstructive sleep apnea syndrome. For testing a nocturnal T3 respiratory monitoring device was used. Continuous record was made of pulse, oxygen saturation, airflow, chest, abdominal strain and body position. 9 hours and 59 minutes of data were reviewed. There were 8 hours and 41 minutes marked as time in bed. During the interval marked time in bed, there were 75 respiratory events identified of 10 seconds in duration or greater for a respiratory event index of 8.6. The events were primarily obstructive; 12 mixed and central apneas were seen. Baseline pulse rate 54 beats per minute, pulse rate range was 46-78. Baseline saturation 94%, saturations dipped to 91%. Testing was performed in both the supine and nonsupine positions. IMPRESSION: Abnormal home sleep testing with repetitive respiratory events and oxygen desaturations to 91% with a respiratory event index of 8.6 is consistent with the obstructive sleep apnea syndrome. RECOMMENDATIONS: The patient should be encouraged to undergo a formal sleep evaluation.
== END ==
LOC: M SLEEP HO 10:23
PROVIDERS: ATTEND Family Medicine
DX: G47.33 Obstructive sleep apnea (adult) (pediatric) (principal)

== ENCOUNTER 2019-02-04 14:22 | Emergency (ER) | payer MEDICARE, BC, OTHER ==
[~2019-02-04] VITALS: Ht 177.8 cm; Wt 112.2 kg
[2019-02-04] MEDS ORDERED: ONDANSETRON 4MG/2ML VIAL (J2405) IV ONE (16:00)
[2019-02-04] MEDS ORDERED: NS 1,000 ML IV ONE (16:00)
[2019-02-04 16:01] LABS: BASO % 0.3 % (0.0-1.0); EOS # 0.1 10^3/uL (0.0-0.50); EOS % 0.4 % (0.0-3.0); HEMATOCRIT 45.6 % (42.0-52.0); HEMOGLOBIN 15.3 g/dl (13.5-17.5); LYMPH # 1.1 10^3/uL (1.5-4.5); LYMPH % 9.6 % (24.0-44.0); MEAN CORPUSCULAR HGB CONC 33.6 g/dl (32.0-36.5); MEAN CORPUSCULAR VOLUME 92.3 fl (80.0-96.0); MONO # 0.4 10^3/uL (0.0-0.8); MONO % 3.2 % (0.0-5.0); NEUTROPHILS # 10.1 10^3/uL (1.8-7.7); NEUTROPHILS % 86.2 % (36.0-66.0); PLATELET COUNT, AUTOMATED 183 10^3/uL (150-450); RED BLOOD COUNT 4.94 10^6/uL (4.30-6.10); WHITE BLOOD COUNT 11.7 10^3/uL (4.0-10.0)
[2019-02-04] MEDS ORDERED: ISOVUE-370 76% 100ML VIAL (Q9967) As Ordered ONE (16:10)
[2019-02-04 16:11] LABS: ALBUMIN 4.4 GM/DL (3.2-5.2); ALT/SGPT 20 U/L (12-78); BILIRUBIN,DIRECT 0.2 MG/DL (0.0-0.2); BILIRUBIN,TOTAL 0.6 MG/DL (0.2-1.0); CK-MB VALUE MASS < 1.0 NG/ML (<3.6); CPK CREATINE PHOSPHOKINASE 90 U/L (39-308); INR 1.03; LIPASE 122 U/L (73-393); MB/CK RELATIVE INDEX 1.11 (< OR =4); PROTHROMBIN TIME 13.2 SECONDS (11.8-14.0); TOTAL PROTEIN 7.3 GM/DL (6.4-8.2); TROPONIN I < 0.02 NG/ML (< 0.10)
[2019-02-04 16:12] LABS: PARTIAL THROMBOPLASTIN TIME 30.4 SECONDS (25.0-38.4)
[2019-02-04] MEDS: MORPHINE 4 MG/ML 1ML VIAL/SYRINGE (J2270) IV PRN ×2 (16:14→16:49)
[2019-02-04] MEDS ORDERED: PERCOCET 5MG/325MG TAB PO ONE (17:30)
[2019-02-04] MEDS ORDERED: ONDANSETRON 4 MG ORAL DISINTEGRATING TAB (Q0162 PER 1MG) PO ONE (18:00)
[2019-02-04] MEDS ORDERED: FLOM0.4C39 PO (18:08)
[2019-02-04] MEDS ORDERED: PERC10TA26 PO (18:08)
[2019-02-04] MEDS ORDERED: ONDA4TAB5 PO (18:08)
[2019-02-04] MEDS ORDERED: KEFL500C17 PO (18:10)
[2019-02-04] MEDS ORDERED: TAMSULOSIN 0.4 MG CAP PO ONE (18:15)
[2019-02-04 18:19] VITALS: BP 139/86
--- NOTE | 2019-02-04 18:39 | REP ---
CT of the abdomen pelvis with IV contrast: There are no comparison studies. The initial scan demonstrates nonobstructive calculi in the right renal pelvis. Additionally there are calcifications in the pelvis on the right, possibly within the right ureter. Therefore, the the patient is returned to the scanner approximate 30 minutes after the initial scan: Identify the ureters in relation to these calculi. On this follow-up scan there is contrast in the renal pelves bilaterally and throughout the left ureter. However, there is no contrast in the right ureter. There is nonopacified fluid in the right ureter. The right ureter is slightly more dilated than on the on this follow-up scan . There are two calcifications in the distal right ureter, one above the other, the superior most measuring 7 mm and the inferior most measuring at 9 mm. There are no other right ureteral calculi. There are no bladder calculi. The visualized lung crowell are unremarkable. The hepatic parenchyma, pancreas, spleen and adrenals are unremarkable on both phases of the study. There are surgical clips in the gallbladder fossa. The abdominal aorta, bowel and mesentery are unremarkable. There are surgical clips suggestive of bariatric surgery. Pelvis: The the patient reportedly has an appendectomy. There are two calculi in the distal right ureter as described. The bladder is unremarkable. There is no ascites or adenopathy. The pelvic bowel loops are unremarkable. Impression: There are two calculi in the distal right ureter as described. Electronically Signed by Stanley Plunkett MD 02/04/2019 06:30 P
--- NOTE | 2019-02-04 21:28 | ECGEPIP ---
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
== END 2019-02-04 18:21 | disposition home or self-care (01) ==
LOC: M ED 14:22
DX: N20.1 Calculus of ureter (principal); R11.0 Nausea; I10 Essential (primary) hypertension; F41.9 Anxiety disorder, unspecified; F32.9 Major depressive disorder, single episode, unspecified; Z88.0 Allergy status to penicillin; Z88.1 Allergy status to other antibiotic agents; Z88.8 Allergy status to other drugs, medicaments and biological substances; Z98.84 Bariatric surgery status; Z79.899 Other long term (current) drug therapy
CPT/HCPCS: 74177; 80047; 80076; 81001; 82550; 82553; 83605; 83690; 84484; 85025; 85610; 85730; 86850; 86900; 86901; 87086; 93005; 96374; 96375; 96376; 99284; J2270; J2405; Q0162; Q9967

== ENCOUNTER → 2019-02-05 | Outpatient (REF) | payer MEDICARE, OTHER ==
[~2019-02-05] MED LIST changes: +FLOM0.4C39 PO; +KEFL500C17 PO; -OMEP40CA2 PO; +OMEP40CA97 PO; +ONDA-83 PO
[2019-02-16 10:07] LABS: Ca Ox Monohydrate 95 % (.)
== END ==
LOC: M SMT 17:01
PROVIDERS: ATTEND Nurse Practitioner Family
DX: N20.0 Calculus of kidney (principal)

== ENCOUNTER → 2019-02-10 | Outpatient (REF) | payer MEDICARE, OTHER ==
[~2019-02-10] MED LIST changes: +OMEP40CA2 PO; -OMEP40CA97 PO; -ONDA-83 PO; +ONDA4TAB5 PO
[2019-02-17 14:15] LABS: Ca Ox Monohydrate 85 % (.)
== END ==
LOC: M SMT 13:05
PROVIDERS: ATTEND Nurse Practitioner Family
DX: N20.0 Calculus of kidney (principal)

== ENCOUNTER → 2019-03-01 | Outpatient (REF) | payer MEDICARE, OTHER ==
[~2019-03-01] MED LIST changes: -OMEP40CA2 PO; +OMEP40CA97 PO; +ONDA-83 PO; -ONDA4TAB5 PO
[2019-03-01 14:00] LABS: BASO % 0.3 % (0.0-1.0); EOS # 0.1 10^3/uL (0.0-0.5); EOS % 0.7 % (0.0-3.0); HEMATOCRIT 43.9 % (42.0-52.0); HEMOGLOBIN 14.3 g/dl (13.5-17.5); LYMPH # 0.9 10^3/uL (1.5-5.0); LYMPH % 12.6 % (24.0-44.0); MEAN CORPUSCULAR HGB CONC 32.6 g/dl (32.0-36.5); MONO # 0.5 10^3/uL (0.0-0.8); MONO % 6.4 % (0.0-5.0); NEUTROPHILS # 5.7 10^3/uL (1.5-8.5); NEUTROPHILS % 79.7 % (36.0-66.0); PLATELET COUNT, AUTOMATED 140 10^3/uL (150-450); RED BLOOD COUNT 4.62 10^6/uL (4.30-6.10); WHITE BLOOD COUNT 7.2 10^3/uL (4.0-10.0)
[2019-03-01 14:03] LABS: AMORPHOUS SEDIMENT SMALL (NEGATIVE); APPEARANCE, URINE CLEAR (CLEAR); BACTERIA, URINE AUTO NEGATIVE (NEGATIVE); BILIRUBIN, URINE AUTO NEGATIVE (NEGATIVE); BLOOD, URINE BLOOD NEGATIVE (NEGATIVE); COLOR, URINE YELLOW (YELLOW); GLUCOSE, URINE (UA) AUTO NEGATIVE (NEGATIVE); KETONE, URINE AUTO NEGATIVE (NEGATIVE); LEUKOCYTE ESTERASE, URINE AUTO NEGATIVE (NEGATIVE); MUCUS, URINE SMALL (NEGATIVE); NITRITE, URINE AUTO NEGATIVE (NEGATIVE); PROTEIN, URINE AUTO NEGATIVE (NEGATIVE); RBC, URINE AUTO 1 /HPF (0-3); SPECIFIC GRAVITY URINE AUTO 1.023 (1.002-1.035); SQUAMOUS EPITHELIAL CELL UR AU 0 /HPF (0-6); UROBILINOGEN, URINE AUTO 0.2 mg/dL (0.0-2.0); WBC, URINE AUTO 13 /HPF (0-3)
[2019-03-01 14:24] LABS: ERYTHROCYTE SEDIMENTATION RATE 8 mm/hr (0-20)
== END ==
LOC: M SFHCPLAZ 11:45
PROVIDERS: ATTEND Nurse Practitioner Family
DX: R61 Generalized hyperhidrosis (principal)

== ENCOUNTER → 2019-03-08 | Outpatient (CLI) | payer MEDICARE, BC, OTHER ==
[~2019-03-08] MED LIST changes: +OMEP40CA2 PO; -OMEP40CA97 PO; -ONDA-83 PO; +ONDA4TAB5 PO
--- NOTE | 2019-03-08 15:14 | REP ---
BLADDER ULTRASOUND: Real-time sonographic evaluation of the urinary bladder performed. Bladder measures 13.2 x 8.2 x 8.7 cm for a total volume of 615 mL. There are bilateral ureteral jets in the urinary bladder with Doppler color evaluation. No bladder mass or calculus is seen. Postvoid residual is 67 mL which is 11% of the original volume. IMPRESSION: No mass or calculus. Postvoid residual 67 mL is 11% of the original volume. Electronically Signed by Stanley Diaz MD 03/09/2019 04:38 P
--- NOTE | 2019-03-08 15:23 | REP ---
RENAL ULTRASOUND: Real-time sonographic of the kidneys performed. Kidneys are normal in size and echotexture, right kidney measuring 11.7 x 5.2 x 5.6 cm and left kidney 11.5 x 4.8 x 5.6 cm. There is no hydronephrosis bilaterally. There is no sonographic evidence of renal mass. There appears to be a calculus in the lower right renal collecting system measuring approximately 1.7 cm in diameter. IMPRESSION: No hydronephrosis. Calculus lower pole right kidney. Electronically Signed by Stanley Diaz MD 03/09/2019 04:38 P
== END ==
LOC: M RAD 10:11
PROVIDERS: ATTEND Nurse Practitioner Family
DX: N20.0 Calculus of kidney (principal)

== ENCOUNTER → 2019-03-26 | Outpatient (CLI) | payer MEDICARE, BC, OTHER ==
[~2019-03-26] MED LIST changes: -OMEP40CA2 PO; +OMEP40CA97 PO
--- NOTE | 2019-03-26 14:23 | REP ---
Two-view chest: 03/27/2019. Indication: Preoperative assessment. Comparison: 03/09/2015. Findings: The lungs are clear. There is no pleural effusion or pneumothorax. The cardiac silhouette is unremarkable. Lower cervical spine ACDF is noted. Multilevel degenerative sequelae of the thoracic spine are present with minimal dextroscoliosis, centered at T10. Impression: No acute cardiopulmonary process. Electronically Signed by Fredrick Clarke DO 03/26/2019 02:13 P
[2019-03-26 18:33] LABS: BLOOD UREA NITROGEN 12 MG/DL (7-18); CALCIUM LEVEL 9.4 MG/DL (8.5-10.1); CARBON DIOXIDE LEVEL 28 MEQ/L (21-32); CHLORIDE LEVEL 108 MEQ/L (98-107); CREATININE FOR GFR 1.09 MG/DL (0.70-1.30); GLOMERULAR FILTRATION RATE > 60.0 (>56); GLUCOSE, FASTING 82 MG/DL (70-100); POTASSIUM SERUM 4.7 MEQ/L (3.5-5.1); SODIUM LEVEL 142 MEQ/L (136-145)
[2019-03-26 18:49] LABS: HEMATOCRIT 45.8 % (42.0-52.0); HEMOGLOBIN 14.8 g/dl (13.5-17.5); MEAN CORPUSCULAR HGB CONC 32.3 g/dl (32.0-36.5); PLATELET COUNT, AUTOMATED 200 10^3/uL (150-450); RED BLOOD COUNT 4.77 10^6/uL (4.30-6.10)
[2019-03-26 18:59] LABS: INR 1.06; PROTHROMBIN TIME 13.5 SECONDS (11.8-14.0)
[2019-03-26 19:00] LABS: PARTIAL THROMBOPLASTIN TIME 31.7 SECONDS (25.0-38.4)
== END ==
LOC: M WUC 13:34
PROVIDERS: ATTEND Nurse Practitioner Family
DX: Z01.818 Encounter for other preprocedural examination (principal); M51.34 Other intervertebral disc degeneration, thoracic region; M43.22 Fusion of spine, cervical region; N20.0 Calculus of kidney

== ENCOUNTER → 2019-04-09 | Outpatient (REF) | payer MEDICARE, BC, OTHER ==
[2019-04-09 13:46] LABS: APPEARANCE, URINE CLEAR (CLEAR); BACTERIA, URINE AUTO NEGATIVE (NEGATIVE); BILIRUBIN, URINE AUTO NEGATIVE (NEGATIVE); BLOOD, URINE BLOOD NEGATIVE (NEGATIVE); COLOR, URINE YELLOW (YELLOW); GLUCOSE, URINE (UA) AUTO NEGATIVE (NEGATIVE); KETONE, URINE AUTO NEGATIVE (NEGATIVE); LEUKOCYTE ESTERASE, URINE AUTO TRACE (NEGATIVE); MUCUS, URINE SMALL (NEGATIVE); NITRITE, URINE AUTO NEGATIVE (NEGATIVE); PROTEIN, URINE AUTO NEGATIVE (NEGATIVE); RBC, URINE AUTO 1 /HPF (0-3); SPECIFIC GRAVITY URINE AUTO 1.017 (1.002-1.035); SQUAMOUS EPITHELIAL CELL UR AU 0 /HPF (0-6); UROBILINOGEN, URINE AUTO 0.2 mg/dL (0.0-2.0); WBC, URINE AUTO 10 /HPF (0-3)
== END ==
LOC: M SMT 13:21
PROVIDERS: ATTEND Nurse Practitioner Family
DX: Z01.818 Encounter for other preprocedural examination (principal); N20.0 Calculus of kidney

== ENCOUNTER 2019-04-15 06:44 | Day surgery (SDC) | payer MEDICARE, BC, OTHER ==
[~2019-04-15] VITALS: Ht 177.8 cm; Wt 109.5 kg
[~2019-04-15 06:44] MED LIST changes: +CIPROFLOXACIN 400 MG in IV 1 EA IV ONE; +LIDOCAINE 1% MDV 20ML VIAL SQ PRN; +LR 1,000 ML IV ONE
[2019-04-15] MEDS ORDERED: ceFAZolin 2 GM/D5W 50 ML IV BAG (J0690 PER 500MG) As Ordered ONE (08:05)
[2019-04-15] MEDS ORDERED: dexameTHASONE 4 MG/ML 1ML VIAL (J1100) As Ordered ONE (08:07)
[2019-04-15] MEDS ORDERED: ONDANSETRON 4MG/2ML VIAL (J2405) As Ordered ONE (08:07)
[2019-04-15] MEDS ORDERED: PROPOFOL 200 MG/20 ML VIAL As Ordered ONE (08:07)
[2019-04-15] MEDS ORDERED: MIDAZOLAM INJ 2 MG/2 ML VIAL (J2250) As Ordered ONE (08:07)
[2019-04-15] MEDS ORDERED: LIDOCAINE 2% INJ 100 MG/5 ML SDV (FOR ANES.) As Ordered ONE (08:07)
[2019-04-15] MEDS ORDERED: fentaNYL 100 MCG/2 ML INJECTION (J3010) As Ordered ONE (08:08)
[2019-04-15] MEDS ORDERED: ceFAZolin SOD 2 GM in IV 1 EA IV ONE (08:15)
[2019-04-15] MEDS ORDERED: CONRAY-60 60% 50ML VIAL (Q9961) As Ordered ONE (09:24)
[2019-04-15] MEDS ORDERED: ACETAMINOPHEN 1000MG 100ML IV BTL (OFIRMEV) (J0131 PER 10MG) As Ordered ONE (09:57)
--- NOTE | 2019-04-15 11:54 | RO ---
DATE OF PROCEDURE: 04/15/2019 PREPROCEDURE DIAGNOSIS: Right kidney stones. POSTPROCEDURE DIAGNOSIS: Right kidney stones. PROCEDURE: Cystoscopy, right ureteroscopy with laser lithotripsy and basket extraction of stones, right retrograde pyelogram with intraoperative interpretation of images, right ureteral stent placement. SURGEON: Dr. Frankie Huddleston BARREL PLANER: None. ANESTHESIA: General. OPERATIVE INDICATIONS: This is a 53-year-old male who on recent imaging was found to have right-sided kidney stones measuring a little bit more than a centimeter in size. He also had stones inside his right ureter, which he has passed. He was brought to the operating room today to treat his kidney stones. DESCRIPTION OF PROCEDURE: The patient was brought to the operating room where general anesthesia was induced. Prophylactic antibiotics were infused. He was then placed in dorsal lithotomy position and prepped and draped in the usual sterile fashion. A rigid cystoscope was inserted into the urethral meatus and advanced into the bladder. Once inside the bladder, a guidewire was advanced up the right collecting system. I then advanced the ureteral access sheath up the right collecting system. The right kidney was thoroughly examined with a flexible ureteroscope and within the right kidney in the lower pole calyx there were at least two stones both measuring around 1 cm in sizes. There was also a small stone in the upper pole calyx. I then utilized a 272 micron laser fiber to fragment the stones into smaller pieces. All the fragments were then removed using a basket. Once done the only fragments remaining were of very tiny stone debris that should be small enough to pass. At this point, I shot a retrograde pyelogram and it was notable for mild right hydronephrosis and no extravasation. I then withdrew the ureteroscope along with access sheath and no stones were seen within the ureter. I then utilized the previously placed wire to advance a 6-Kinyarwanda x 22-32 cm JJ ureteral stent up into the right collecting system. The wire was removed and there were adequate curls of the stent in the right renal pelvis and in the bladder. The bladder was emptied of all fluids. This marked the conclusion of the procedure. The patient was taken out of the dorsal lithotomy position, awakened from anesthesia and transported to the recovery room in stable condition. Estimated blood loss: 10 mL. Complications: None. Specimen: Kidney stone fragments. Plan: The patient will followup in the clinic in a few weeks for stent removal. BENJAMIND
[2019-04-15] MEDS ORDERED: LR 1,000 ML IV SCH (12:15)
[2019-04-15] MEDS ORDERED: PERCOCET 5MG/325MG TAB PO PRN (12:15)
[2019-04-15] MEDS ORDERED: oxyCODONE 5MG TAB PO PRN (12:15)
[2019-04-15] MEDS ORDERED: ONDANSETRON 4MG/2ML VIAL (J2405) IV PRN (12:15)
[2019-04-15] MEDS ORDERED: fentaNYL 100 MCG/2 ML INJECTION (J3010) IV PRN (12:15)
[2019-04-15 12:50] VITALS: BP 138/79
--- NOTE | 2019-04-15 13:51 | REP ---
Retrograde pyelogram: Two views. History: Kidney stone. 7 seconds of fluoroscopy time is reported. Findings: A sequence of two last image hold fluoroscopically obtained spot radiographs of the abdomen document ureteral cannulation, contrast injection and double pigtail stent placement. No laterality markers are visible. Electronically Signed by Balwinder Vargas MD 04/15/2019 03:16 P
== END 2019-04-15 12:58 | disposition home or self-care (01) ==
LOC: M SDC 06:44
PROVIDERS: ATTEND Urology
DX: N20.0 Calculus of kidney (principal); I12.9 Hypertensive chronic kidney disease with stage 1 through stage 4 chronic kidney disease, or unspecified chronic kidney disease; E78.2 Mixed hyperlipidemia; R07.9 Chest pain, unspecified; K59.09 Other constipation; K21.9 Gastro-esophageal reflux disease without esophagitis; F41.9 Anxiety disorder, unspecified; F33.9 Major depressive disorder, recurrent, unspecified; G43.009 Migraine without aura, not intractable, without status migrainosus; G47.00 Insomnia, unspecified; D50.9 Iron deficiency anemia, unspecified; N18.2 Chronic kidney disease, stage 2 (mild); G62.9 Polyneuropathy, unspecified; G47.33 Obstructive sleep apnea (adult) (pediatric); M47.24 Other spondylosis with radiculopathy, thoracic region; M47.816 Spondylosis without myelopathy or radiculopathy, lumbar region; E55.9 Vitamin D deficiency, unspecified; E66.09 Other obesity due to excess calories; K64.9 Unspecified hemorrhoids; J30.89 Other allergic rhinitis; T88.59XD Other complications of anesthesia, subsequent encounter; Z88.0 Allergy status to penicillin; Z88.1 Allergy status to other antibiotic agents; Z88.5 Allergy status to narcotic agent; Z79.899 Other long term (current) drug therapy; Z98.84 Bariatric surgery status; Z86.010 Personal history of colon polyps
CPT/HCPCS: 52356; 74420; 82360; 88300; C1769; C1894; C2617; J0131; J0690; J1100; J2250; J2405; J3010; Q9961

== ENCOUNTER → 2019-05-14 | Outpatient (REF) | payer MEDICARE, OTHER ==
[~2019-05-14] MED LIST changes: -CIPROFLOXACIN 400 MG in IV 1 EA IV ONE; -LIDOCAINE 1% MDV 20ML VIAL SQ PRN; -LR 1,000 ML IV ONE
[2019-05-14 15:05] LABS: APPEARANCE, URINE CLOUDY (CLEAR); BACTERIA, URINE AUTO NEGATIVE (NEGATIVE); BILIRUBIN, URINE AUTO NEGATIVE (NEGATIVE); BLOOD, URINE BLOOD 3+ (NEGATIVE); COLOR, URINE YELLOW (YELLOW); GLUCOSE, URINE (UA) AUTO NEGATIVE (NEGATIVE); KETONE, URINE AUTO NEGATIVE (NEGATIVE); LEUKOCYTE ESTERASE, URINE AUTO NEGATIVE (NEGATIVE); MUCUS, URINE SMALL (NEGATIVE); NITRITE, URINE AUTO NEGATIVE (NEGATIVE); PROTEIN, URINE AUTO 2+ mg/dL (NEGATIVE); RBC, URINE AUTO TNTC /HPF (0-3); SPECIFIC GRAVITY URINE AUTO 1.021 (1.002-1.035); SQUAMOUS EPITHELIAL CELL UR AU 0 /HPF (0-6); UROBILINOGEN, URINE AUTO 0.2 mg/dL (0.0-2.0); WBC, URINE AUTO 9 /HPF (0-3)
== END ==
LOC: M SMT 13:42
PROVIDERS: ATTEND Urology
DX: N20.0 Calculus of kidney (principal)

== ENCOUNTER → 2020-02-08 | Outpatient (CLI) | payer MEDICARE, BC, OTHER ==
[~2020-02-08] MED LIST changes: -MOVA1TAB2 PO; +NALO25TA PO; +ONDA-83 PO; -ONDA4TAB5 PO
[2020-02-08 14:20] LABS: ALBUMIN 3.9 GM/DL (3.2-5.2); ALT/SGPT 16 U/L (12-78); BILIRUBIN,TOTAL 0.4 MG/DL (0.2-1.0); BLOOD UREA NITROGEN 17 MG/DL (7-18); CALCIUM LEVEL 8.7 MG/DL (8.5-10.1); CARBON DIOXIDE LEVEL 28 MEQ/L (21-32); CHLORIDE LEVEL 110 MEQ/L (98-107); CHOLESTEROL LEVEL 182 MG/DL (<200); CREATININE FOR GFR 0.97 MG/DL (0.70-1.30); GLOMERULAR FILTRATION RATE > 60.0 (>56); GLUCOSE, FASTING 73 MG/DL (70-100); HDL CHOLESTEROL 54 MG/DL (>40); LDL CHOLESTEROL 114 MG/DL (<100); NON-HDL-C 128 MG/DL; POTASSIUM SERUM 4.4 MEQ/L (3.5-5.1); SODIUM LEVEL 142 MEQ/L (136-145); TOTAL PROTEIN 6.8 GM/DL (6.4-8.2); TRIGLYCERIDES LEVEL 70 MG/DL (<150)
[2020-02-08 15:21] LABS: HEMOGLOBIN A1c 5.3 %
--- NOTE | 2020-03-07 14:10 | REP ---
RIGHT HAND SERIES CLINICAL: Pain, arthritis primarily noted at the base of the thumb. TECHNIQUE: AP, lateral, bilateral oblique views of the right hand. FINDINGS: Subchondral sclerosis with joint space narrowing and mild chronic subluxation at the first carpometacarpal joint is appreciated and consistent with the patients pain and moderate arthritic disease. There is increased sclerosis along the radial surface with decreased radiocarpal joint space as well as subtle increased sclerosis to the contour of the carpal bones and decreased carpometacarpal joint space as well. The metacarpophalangeal and interphalangeal joints appear relatively age appropriate. Possible old healed fifth metacarpal bone fracture. No acute fracture or dislocation. 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
== END ==
LOC: M WUC 11:26
PROVIDERS: ATTEND Family Medicine
DX: I10 Essential (primary) hypertension (principal); R73.01 Impaired fasting glucose; M19.041 Primary osteoarthritis, right hand; M19.031 Primary osteoarthritis, right wrist; Z12.5 Encounter for screening for malignant neoplasm of prostate
CPT/HCPCS: 36415; 73130; 80053; 80061; 83036; 86850; 86900; 86901; G0103; G0463

== ENCOUNTER → 2020-02-10 | Outpatient (CLI) | payer MEDICARE, BC, OTHER | LOC: M WUC 09:13 | PROVIDERS: ATTEND Family Medicine | DX: R73.01 Impaired fasting glucose (principal); I10 Essential (primary) hypertension; Z79.899 Other long term (current) drug therapy ==

== ENCOUNTER → 2020-03-10 | Outpatient (CLI) | payer MEDICARE, BC, OTHER | LOC: M LABSMTC 11:39 | PROVIDERS: ATTEND Anesthesiology | DX: Z01.812 Encounter for preprocedural laboratory examination (principal); Z20.828 Contact with and (suspected) exposure to other viral communicable diseases | CPT/HCPCS: C9803; U0003 ==

== ENCOUNTER 2020-03-15 08:49 | Day surgery (SDC) | payer MEDICARE, BC, OTHER ==
[~2020-03-15] VITALS: Ht 177.8 cm; Wt 109.7 kg
[~2020-03-15 08:49] MED LIST changes: +LIDOCAINE 2% 100MG/5ML SDV (FOR ANES.) As Ordered ONE; +NS 1,000 ML IV SCH; +propofoL 200 MG/20 ML VIAL As Ordered ONE
[2020-03-15] MEDS ORDERED: propofoL 200 MG/20 ML VIAL As Ordered ONE (09:37)
--- NOTE | 2020-03-15 09:47 | ROOR ---
Patient Name: Jamaal Kilgore Procedure Date: 03/15/2020 9:16 AM Date of : 1965 Age: 54 Room: [facility] Gender: Male Note Status: Finalized Procedure: Colonoscopy Indications: High risk colon cancer surveillance: Personal history of colonic polyps, Last colonoscopy: December 2016 Providers: Harjeet JACKSON MD Referring MD: Abhijit Briceño MD Requesting Provider: Medicines: Monitored Anesthesia Care Complications: No immediate complications. Procedure: Pre-Anesthesia Assessment: - The heart rate, respiratory rate, oxygen saturations, blood pressure, adequacy of pulmonary ventilation, and response to care were monitored throughout the procedure. The Colonoscope was introduced through the anus and advanced to the cecum, identified by appendiceal orifice and ileocecal valve. The colonoscopy was performed without difficulty. The patient tolerated the procedure well. The quality of the bowel preparation was good. Findings: The perianal and digital rectal examinations were normal. Internal hemorrhoids were found during retroflexion. The hemorrhoids were medium-sized. The colon (entire examined portion) was redundant. Advancing the scope required using manual pressure. The mucosa vascular pattern in the entire colon was decreased. This was biopsied with a cold forceps for histology. The entire examined colon appeared normal on direct and retroflexion views. Impression: - Internal hemorrhoids. - Decreased mucosa vascular pattern in the entire examined colon. Biopsied. - The entire examined colon is otherwise normal on direct and retroflexion views. Recommendation: - Telephone endoscopist for pathology results in 2 weeks. - Repeat colonoscopy in 5 years for surveillance. Hrajeet Jackson MD Harjeet JACKSON MD 03/15/2020 9:47:21 AM Electronically signed by Harjeet JACKSON MD Number of Addenda: 0 Note Initiated On: 03/15/2020 9:16 AM Estimated Blood Loss: Estimated blood loss: none.
[2020-03-15 10:12] VITALS: BP 148/92
== END 2020-03-15 10:16 | disposition home or self-care (01) ==
LOC: M OPP 08:49
PROVIDERS: ATTEND Internal Medicine Gastroenterology
DX: Z12.11 Encounter for screening for malignant neoplasm of colon (principal); Z86.010 Personal history of colon polyps; K52.9 Noninfective gastroenteritis and colitis, unspecified; K64.8 Other hemorrhoids; Q43.8 Other specified congenital malformations of intestine; Z79.891 Long term (current) use of opiate analgesic; Z79.899 Other long term (current) drug therapy; Z88.0 Allergy status to penicillin; Z88.1 Allergy status to other antibiotic agents; Z88.8 Allergy status to other drugs, medicaments and biological substances

== ENCOUNTER → 2020-07-27 | Outpatient (REF) | payer MEDICARE, OTHER ==
[~2020-07-27] MED LIST changes: -BUPR150T3 PO; +BUPR150T4 PO; -LIDOCAINE 2% 100MG/5ML SDV (FOR ANES.) As Ordered ONE; -NS 1,000 ML IV SCH; -propofoL 200 MG/20 ML VIAL As Ordered ONE
[2020-07-27 15:34] LABS: BASO # 0.1 10^3/uL (0.0-0.2); BASO % 0.6 % (0.0-1.0); EOS # 0.1 10^3/uL (0.0-0.5); EOS % 1.3 % (0.0-3.0); HEMATOCRIT 44.9 % (42.0-52.0); HEMOGLOBIN 14.3 g/dl (13.5-17.5); LYMPH # 2.2 10^3/uL (1.5-5.0); LYMPH % 27.5 % (24.0-44.0); MEAN CORPUSCULAR HEMOGLOBIN 29.2 pg (27.0-33.0); MEAN CORPUSCULAR HGB CONC 31.8 g/dl (32.0-36.5); MEAN CORPUSCULAR VOLUME 91.8 fl (80.0-96.0); MONO # 0.6 10^3/uL (0.0-0.8); MONO % 7.3 % (2.0-8.0); PLATELET COUNT, AUTOMATED 225 10^3/uL (150-450); RED BLOOD COUNT 4.89 10^6/uL (4.30-6.10); WHITE BLOOD COUNT 7.9 10^3/uL (4.0-10.0)
[2020-07-27 16:00] LABS: ERYTHROCYTE SEDIMENTATION RATE 4 mm/hr (0-20)
[2020-07-27 16:03] LABS: HEMOGLOBIN A1c 5.3 %
[2020-07-27 16:06] LABS: ALBUMIN 4.2 GM/DL (3.2-5.2); ALT/SGPT 20 U/L (12-78); BILIRUBIN,TOTAL 0.4 MG/DL (0.2-1.0); BLOOD UREA NITROGEN 16 MG/DL (7-18); CALCIUM LEVEL 9.2 MG/DL (8.5-10.1); CARBON DIOXIDE LEVEL 28 MEQ/L (21-32); CHLORIDE LEVEL 108 MEQ/L (98-107); CREATININE FOR GFR 1.07 MG/DL (0.70-1.30); FERRITIN 10 NG/ML (26-388); GLOMERULAR FILTRATION RATE > 60.0 (>56); GLUCOSE, FASTING 85 MG/DL (70-100); NT-PRO BNP 154 PG/ML (<125); SODIUM LEVEL 142 MEQ/L (136-145); TOTAL PROTEIN 7.2 GM/DL (6.4-8.2)
[2020-07-27 16:12] LABS: TOTAL 25(OH) VITAMIN D 44.4 NG/ML (30.0-100.0)
[2020-07-27 16:13] LABS: PTH INTACT 92.3 PG/ML (18.5-88.0); VITAMIN B12 LEVEL 326 PG/ML (247-911)
[2020-07-29 08:13] LABS: INSULIN LEVEL 8.7 uIU/mL (2.6-24.9)
== END ==
LOC: M SFHCPLAZ 14:21
PROVIDERS: ATTEND Family Medicine
DX: D50.9 Iron deficiency anemia, unspecified (principal); E55.9 Vitamin D deficiency, unspecified; K59.09 Other constipation; Z79.899 Other long term (current) drug therapy
CPT/HCPCS: 36415; 80053; 81479; 82306; 82607; 82728; 83036; 83520; 83525; 83880; 83970; 85025; 85652; 86140; G0463

== ENCOUNTER → 2020-09-14 | Outpatient (CLI) | payer MEDICARE, BC, OTHER ==
[~2020-09-14] MED LIST changes: +BUPR150T12 PO; -BUPR150T4 PO
--- NOTE | 2020-09-18 16:31 | SLEEPCENT ---
NOCTURNAL POLYSOMNOGRAPHY DATE: 09/14/2020 ORDERED BY: VICKI Angeles Nocturnal polysomnography was performed for evaluation of sleep physiology in this patient with a history of excessive somnolence and nonrestorative sleep, who had abnormal home testing revealing a respiratory event index of 8.6. 7 hours and 51 minutes of data were reviewed. There were 347.5 minutes of sleep identified. Sleep latency was short at 4.5 minutes. REM latency was unable to be calculated as REM sleep was not achieved during this study. Sleep architecture poor progression and sleep fragmentation. Overall sleep efficiency was 75.1%. No N3 nor REM sleep was seen. The electrocardiogram showed a sinus rhythm with an average heart rate of 50 beats per minute; rate range 42 to 60. EEG showed reasonably normal waveforms for wake and sleep. There were 53 respiratory events identified of 10 seconds in duration or greater for an apnea-hypopnea index of 9.2. The events were obstructive, not exclusive to sleep stage nor posture. Arousals from respiratory events occurred 6.7 times per hour and oxygen desaturations were seen below 98%. There was some minor limb activity. Snoring was noted and remaining measures of sleep physiology were normal. IMPRESSION: Obstructive sleep apnea syndrome (G47.33), apnea-hypopnea index 9.2. RECOMMENDATION: The patient should be encouraged to return to [facility] for [facility]. In the interim, alcohol and sedative avoidance should be practiced and caution exercised during the operation of motor vehicles.
== END ==
LOC: M SLEEP 20:00
PROVIDERS: ATTEND Nurse Practitioner Family
DX: G47.33 Obstructive sleep apnea (adult) (pediatric) (principal)

== ENCOUNTER → 2020-10-21 | Outpatient (CLI) | payer MEDICARE, BC, OTHER ==
--- NOTE | 2020-10-23 15:45 | SLEEPCENT ---
NOCTURNAL POLYSOMNOGRAPHY CPAP TITRATION DATE: 10/21/2020 ORDERED BY: VICKI Angeles Nocturnal polysomnography was performed for the titration of pressure therapy in this patient with obstructive sleep apnea syndrome with apnea-hypopnea index of 9.2. For testing a ResMed F20 full face mask of medium size was used, 4 cm of water pressure were applied to the circuit, and the lights were extinguished. 7 hours and 37 minutes of data were reviewed. There were 414.5 minutes of sleep identified. Sleep latency was normal at 11 minutes. REM latency was delayed at 289 minutes. Sleep architecture improved with optimal pressure therapy and there was one REM cycle. Overall sleep efficiency was 92.5%. The electrocardiogram showed a sinus rhythm with an average heart rate of 52 beats per minute. EEG showed normal waveforms for wake and sleep. Respiratory events were fully palliated with CPAP at a pressure of +7 and remaining measures of sleep physiology were normal. IMPRESSION: Obstructive sleep apnea syndrome (G47.33). RECOMMENDATION: Nightly use of pressure therapy 7 cm of water.
== END ==
LOC: M SLEEP 20:00
PROVIDERS: ATTEND Nurse Practitioner Family
DX: G47.33 Obstructive sleep apnea (adult) (pediatric) (principal)

== ENCOUNTER → 2020-10-27 | Outpatient (REF) | payer MEDICARE, OTHER ==
[2020-10-27 13:33] LABS: BASO % 0.6 % (0.0-1.0); EOS # 0.1 10^3/uL (0.0-0.5); EOS % 1.8 % (0.0-3.0); HEMATOCRIT 44.1 % (42.0-52.0); HEMOGLOBIN 14.3 g/dl (13.5-17.5); LYMPH # 1.9 10^3/uL (1.5-5.0); LYMPH % 28.2 % (24.0-44.0); MEAN CORPUSCULAR HEMOGLOBIN 29.5 pg (27.0-33.0); MEAN CORPUSCULAR HGB CONC 32.4 g/dl (32.0-36.5); MEAN CORPUSCULAR VOLUME 90.9 fl (80.0-96.0); MONO # 0.5 10^3/uL (0.0-0.8); MONO % 6.8 % (2.0-8.0); NEUTROPHILS # 4.1 10^3/uL (1.5-8.5); NEUTROPHILS % 62.3 % (36.0-66.0); PLATELET COUNT, AUTOMATED 199 10^3/uL (150-450); RED BLOOD COUNT 4.85 10^6/uL (4.30-6.10); WHITE BLOOD COUNT 6.6 10^3/uL (4.0-10.0)
[2020-10-27 13:45] LABS: INR 0.91; PROTHROMBIN TIME 12.4 SECONDS (12.5-14.3)
[2020-10-27 13:46] LABS: PARTIAL THROMBOPLASTIN TIME 28.8 SECONDS (24.2-38.5)
[2020-10-27 14:00] LABS: ALT/SGPT 18 U/L (12-78); BILIRUBIN,TOTAL 0.4 MG/DL (0.2-1.0); BLOOD UREA NITROGEN 13 MG/DL (7-18); CARBON DIOXIDE LEVEL 28 MEQ/L (21-32); CHLORIDE LEVEL 111 MEQ/L (98-107); CREATININE FOR GFR 0.95 MG/DL (0.70-1.30); FERRITIN 8 NG/ML (26-388); GLOMERULAR FILTRATION RATE > 60.0 (>56); GLUCOSE, FASTING 87 MG/DL (70-100); NT-PRO BNP 192 PG/ML (<125); POTASSIUM SERUM 4.5 MEQ/L (3.5-5.1); SODIUM LEVEL 142 MEQ/L (136-145); TOTAL PROTEIN 7.1 GM/DL (6.4-8.2)
== END ==
LOC: M SFHCPLAZ 11:30
PROVIDERS: ATTEND Family Medicine
DX: Z01.818 Encounter for other preprocedural examination (principal); I10 Essential (primary) hypertension; D50.9 Iron deficiency anemia, unspecified
CPT/HCPCS: 36415; 80053; 82728; 83880; 85025; 85610; 85730; 93005; G0463

== ENCOUNTER → 2021-01-09 | Outpatient (CLI) | payer MEDICARE, BC, OTHER ==
[~2021-01-09] MED LIST changes: -DOXY100C37 PO; +DOXY1CAP62 PO; +METH-1165 PO; +OMEP40CA4 PO; -OMEP40CA97 PO; -RIZA5TAB PO; +RIZA5TAB2 PO
[2021-01-09 17:56] LABS: BASO # 0.1 10^3/uL (0.0-0.2); BASO % 0.6 % (0.0-1.0); EOS % 0.2 % (0.0-3.0); HEMATOCRIT 42.3 % (42.0-52.0); HEMOGLOBIN 13.3 g/dl (13.5-17.5); LYMPH # 0.8 10^3/uL (1.5-5.0); LYMPH % 9.9 % (24.0-44.0); MEAN CORPUSCULAR HEMOGLOBIN 28.5 pg (27.0-33.0); MEAN CORPUSCULAR HGB CONC 31.4 g/dl (32.0-36.5); MEAN CORPUSCULAR VOLUME 90.8 fl (80.0-96.0); MONO # 0.2 10^3/uL (0.0-0.8); MONO % 2.4 % (2.0-8.0); NEUTROPHILS # 7.1 10^3/uL (1.5-8.5); NEUTROPHILS % 86.2 % (36.0-66.0); PLATELET COUNT, AUTOMATED 230 10^3/uL (150-450); RED BLOOD COUNT 4.66 10^6/uL (4.30-6.10); WHITE BLOOD COUNT 8.2 10^3/uL (4.0-10.0)
[2021-01-09 18:15] LABS: ALBUMIN 4.1 GM/DL (3.2-5.2); BILIRUBIN,TOTAL 0.3 MG/DL (0.2-1.0); CALCIUM LEVEL 9.2 MG/DL (8.5-10.1); CREATININE FOR GFR 1.37 MG/DL (0.70-1.30); POTASSIUM SERUM 5.3 MEQ/L (3.5-5.1); TOTAL PROTEIN 7.3 GM/DL (6.4-8.2)
[2021-01-09 20:12] LABS: APPEARANCE, URINE CLOUDY (CLEAR); BACTERIA, URINE AUTO 2+ (NEGATIVE); BILIRUBIN, URINE AUTO NEGATIVE (NEGATIVE); BLOOD, URINE BLOOD 2+ (NEGATIVE); COLOR, URINE YELLOW (YELLOW); GLUCOSE, URINE (UA) AUTO NEGATIVE (NEGATIVE); KETONE, URINE AUTO NEGATIVE (NEGATIVE); LEUKOCYTE ESTERASE, URINE AUTO 3+ (NEGATIVE); MUCUS, URINE SMALL (NEGATIVE); NITRITE, URINE AUTO POSITIVE (NEGATIVE); PROTEIN, URINE AUTO 1+ mg/dL (NEGATIVE); RBC, URINE AUTO 5 /HPF (0-3); SPECIFIC GRAVITY URINE AUTO 1.009 (1.002-1.035); SQUAMOUS EPITHELIAL CELL UR AU 0 /HPF (0-6); UROBILINOGEN, URINE AUTO 0.2 mg/dL (0.0-2.0); WBC, URINE AUTO TNTC /HPF (0-3)
== END ==
LOC: M PLALAB 15:36
PROVIDERS: ATTEND Physician Assistant
DX: R30.0 Dysuria (principal); N39.0 Urinary tract infection, site not specified

== ENCOUNTER → 2021-01-12 | Outpatient (CLI) | payer OTHER ==
[~2021-01-12] MED LIST changes: +DOXY-443 PO; -DOXY1CAP62 PO
== END ==
LOC: M PLARAD 14:06
PROVIDERS: ATTEND Nurse Practitioner Family
DX: M54.16 Radiculopathy, lumbar region (principal)

== ENCOUNTER → 2021-02-02 | Outpatient (CLI) | payer MEDICARE, BC, OTHER ==
[~2021-02-02] MED LIST changes: -DOXY-443 PO; +DOXY1CAP62 PO
--- NOTE | 2021-02-02 10:40 | REP ---
INDICATION: ACUTE CYSTITIS W/ HEMATURIA COMPARISON: 03/08/2019 TECHNIQUE: Real time mackenzie scale ultrasound examination using curved array transducer. FINDINGS: Bilateral kidneys are normal in contour, size, echogenicity, and reniform shape. No hydronephrosis, nephrolithiasis, cystic or renal mass lesion. No perinephric fluid collection. Right kidney measures 11.4 x 5.6 x 5.4 cm. Left kidney measures 12.2 x 5.6 x 5.7 cm. IMPRESSION: 1. Normal renal ultrasound. <Electronically signed by Sebastian Casas > 02/02/21 [id number]
--- NOTE | 2021-02-02 10:41 | REP ---
INDICATION: ACUTE CYSTITIS W/ HEMATURIA COMPARISON: 03/08/2019 TECHNIQUE: Real time B-mode ultrasound examination using curved array transducer. FINDINGS: Bladder is normal in appearance without wall thickening or mass lesion. Small amount of layering debris is noted and nonspecific. Bilateral ureteral jets were not identified during examination. Prevoid bladder measures 9.5 x 7.0 x 7.6 cm (330 cc). Postvoid bladder measures 3.5 x 2.7 x 1.8 cm (11.1 cc). Postvoid residual: 3.4% IMPRESSION: 1. Essentially normal bladder ultrasound. <Electronically signed by Sebastian Casas > 02/02/21 1037
== END ==
LOC: M RAD 09:50
PROVIDERS: ATTEND Physician Assistant
DX: N30.01 Acute cystitis with hematuria (principal)

== ENCOUNTER → 2021-02-05 | Outpatient (CLI) | payer MEDICARE, BC, OTHER ==
[2021-02-05 14:32] LABS: BASO # 0.1 10^3/uL (0.0-0.2); BASO % 0.8 % (0.0-1.0); EOS # 0.2 10^3/uL (0.0-0.5); EOS % 2.8 % (0.0-3.0); HEMATOCRIT 39.7 % (42.0-52.0); HEMOGLOBIN 12.9 g/dl (13.5-17.5); LYMPH # 1.6 10^3/uL (1.5-5.0); LYMPH % 21.4 % (24.0-44.0); MEAN CORPUSCULAR HEMOGLOBIN 29.9 pg (27.0-33.0); MEAN CORPUSCULAR HGB CONC 32.5 g/dl (32.0-36.5); MEAN CORPUSCULAR VOLUME 92.1 fl (80.0-96.0); MONO # 0.5 10^3/uL (0.0-0.8); MONO % 6.8 % (2.0-8.0); NEUTROPHILS # 5.1 10^3/uL (1.5-8.5); NEUTROPHILS % 67.8 % (36.0-66.0); PLATELET COUNT, AUTOMATED 170 10^3/uL (150-450); RED BLOOD COUNT 4.31 10^6/uL (4.30-6.10); WHITE BLOOD COUNT 7.5 10^3/uL (4.0-10.0)
[2021-02-05 15:13] LABS: ALBUMIN 3.7 GM/DL (3.2-5.2); ALT/SGPT 18 U/L (12-78); BILIRUBIN,TOTAL 0.3 MG/DL (0.2-1.0); BLOOD UREA NITROGEN 15 MG/DL (7-18); CARBON DIOXIDE LEVEL 24 MEQ/L (21-32); CHLORIDE LEVEL 113 MEQ/L (98-107); CREATININE FOR GFR 1.14 MG/DL (0.70-1.30); FREE T4 0.65 NG/DL (0.76-1.46); GLOMERULAR FILTRATION RATE > 60.0 (>56); GLUCOSE, FASTING 81 MG/DL (70-100); NT-PRO BNP 508 PG/ML (<125); POTASSIUM SERUM 4.9 MEQ/L (3.5-5.1); SODIUM LEVEL 143 MEQ/L (136-145); TOTAL PROTEIN 6.5 GM/DL (6.4-8.2); VITAMIN B12 LEVEL 715 PG/ML (247-911)
[2021-02-05 16:02] LABS: HEMOGLOBIN A1c 5.3 %
== END ==
LOC: M PLALAB 11:30
PROVIDERS: ATTEND Family Medicine
DX: E53.8 Deficiency of other specified B group vitamins (principal); I10 Essential (primary) hypertension; G25.0 Essential tremor; R30.0 Dysuria; R39.11 Hesitancy of micturition; Z12.5 Encounter for screening for malignant neoplasm of prostate; Z79.899 Other long term (current) drug therapy
CPT/HCPCS: 36415; 80053; 81002; 82607; 83036; 83525; 83880; 84439; 84443; 85025; 87088; 87186; G0103; G0463

== ENCOUNTER → 2021-02-05 | Outpatient (REF) | payer MEDICARE, BC, OTHER | LOC: M SFHCPLAZ 13:23 | PROVIDERS: ATTEND Physician Assistant | DX: R30.0 Dysuria (principal) ==

== ENCOUNTER → 2021-02-16 | Outpatient (CLI) | payer MEDICARE, BC, OTHER ==
--- NOTE | 2021-02-18 11:56 | ECHO ---
ECHOCARDIOGRAM DATE OF PROCEDURE: 02/16/2021 Age: 55 Gender: Male Height: 178 cm Weight: 123 kg REFERRING PROVIDER: Abhijit Briceño M.D. PATIENT LOCATION: Outpatient. REASON FOR THE TESTING: Edema. MEASUREMENTS: 2D Measurements: IVS 1.1 cm LV 4.8 cm LVPW 1.2 cm LA 3.9 cm Aorta 3.5 cm Doppler Measurements: Mitral E 0.6 Mitral A 0.8 with a ratio of 0.8 2D COMMENTS: 1. Normal left ventricular size, wall thickness and normal global left ventricular systolic function. The estimated left ventricular systolic ejection fraction is 60-65%. 2. Normal left atrium. Normal right atrium and right ventricle. 3. The atrial septum appeared to be normal without evidence of defect or shunt. 4. Normal aortic root. 5. No pericardial effusion seen. 6. Mildly calcified aortic valve with normal leaflet excursion. Mildly calcified mitral annulus with normal anterior mitral valve leaflet motion. Normal tricuspid valve and pulmonic valve. The proximal pulmonary artery branches also appeared to be normal. 7. The inferior vena cava was not well visualized. DOPPLER: It detects mild mitral regurgitation, trace tricuspid regurgitation and mild pulmonic regurgitation. Pulmonary artery systolic pressure appeared to be normal. Abnormal relaxation pattern was noted across the mitral valve leaflets as well as the mitral valve annulus, consistent with features of grade 1 left ventricular diastolic dysfunction. IMPRESSION: 1. Normal global left ventricular systolic function. There are some features of grade 1 left ventricular diastolic dysfunction manifested by abnormal relaxation pattern. 2. Aortic valve sclerosis without stenosis or aortic regurgitation. 3. Mitral annulus calcification with mild mitral regurgitation. 4. Trace tricuspid regurgitation. 5. Mild pulmonic regurgitation.
== END ==
LOC: M CARPUL 10:20
PROVIDERS: ATTEND Family Medicine
DX: R60.9 Edema, unspecified (principal)

== ENCOUNTER → 2021-03-07 | Outpatient (REF) | payer MEDICARE, BC ==
[2021-03-07 22:59] LABS: APPEARANCE, URINE HAZY (CLEAR); BACTERIA, URINE AUTO NEGATIVE (NEGATIVE); BILIRUBIN, URINE AUTO NEGATIVE (NEGATIVE); BLOOD, URINE BLOOD NEGATIVE (NEGATIVE); COLOR, URINE YELLOW (YELLOW); GLUCOSE, URINE (UA) AUTO NEGATIVE (NEGATIVE); KETONE, URINE AUTO NEGATIVE (NEGATIVE); LEUKOCYTE ESTERASE, URINE AUTO 1+ (NEGATIVE); MUCUS, URINE SMALL (NEGATIVE); NITRITE, URINE AUTO POSITIVE (NEGATIVE); PROTEIN, URINE AUTO NEGATIVE (NEGATIVE); RBC, URINE AUTO 1 /HPF (0-3); SPECIFIC GRAVITY URINE AUTO 1.018 (1.002-1.035); SQUAMOUS EPITHELIAL CELL UR AU 0 /HPF (0-6); UROBILINOGEN, URINE AUTO 0.2 mg/dL (0.0-2.0); WBC, URINE AUTO 42 /HPF (0-3)
== END ==
LOC: M LAB REF 22:13
PROVIDERS: ATTEND Physician Assistant
DX: R30.0 Dysuria (principal)

== ENCOUNTER → 2021-03-30 | Outpatient (CLI) | payer MEDICARE, BC, OTHER ==
[~2021-03-30] MED LIST changes: +DOXY-443 PO; -DOXY1CAP62 PO
[2021-03-30 19:27] LABS: APPEARANCE, URINE CLEAR (CLEAR); BACTERIA, URINE AUTO NEGATIVE (NEGATIVE); BILIRUBIN, URINE AUTO NEGATIVE (NEGATIVE); BLOOD, URINE BLOOD NEGATIVE (NEGATIVE); COLOR, URINE YELLOW (YELLOW); GLUCOSE, URINE (UA) AUTO NEGATIVE (NEGATIVE); KETONE, URINE AUTO NEGATIVE (NEGATIVE); LEUKOCYTE ESTERASE, URINE AUTO TRACE (NEGATIVE); NITRITE, URINE AUTO NEGATIVE (NEGATIVE); PROTEIN, URINE AUTO NEGATIVE (NEGATIVE); RBC, URINE AUTO 1 /HPF (0-3); SPECIFIC GRAVITY URINE AUTO 1.012 (1.002-1.035); SQUAMOUS EPITHELIAL CELL UR AU 0 /HPF (0-6); WBC, URINE AUTO 1 /HPF (0-3)
== END ==
LOC: M LAB 18:06
PROVIDERS: ATTEND Family Medicine
DX: N39.0 Urinary tract infection, site not specified (principal)
CPT/HCPCS: 36415; 81001; 87086; 90682; G0008; G0463

== ENCOUNTER → 2021-05-11 | Outpatient (REF) | payer MEDICARE, BC, OTHER | LOC: M SMT 16:54 | PROVIDERS: ATTEND Urology | DX: Z87.440 Personal history of urinary (tract) infections (principal); Z79.899 Other long term (current) drug therapy ==

== ENCOUNTER → 2021-05-16 | Outpatient (CLI) | payer MEDICARE, BC, OTHER ==
[~2021-05-16] MED LIST changes: +ISOVUE-370 76% 100ML VIAL ONE
== END ==
LOC: M PLAIMG 13:41
PROVIDERS: ATTEND Urology
DX: Z87.440 Personal history of urinary (tract) infections (principal)
CPT/HCPCS: 74178; Q9967

== ENCOUNTER → 2021-06-18 | Outpatient (CLI) | payer MEDICARE, BC, OTHER ==
[~2021-06-18] MED LIST changes: -ISOVUE-370 76% 100ML VIAL ONE
[2021-06-18 17:33] LABS: BASO # 0.1 10^3/uL (0.0-0.2); BASO % 0.7 % (0.0-1.0); EOS # 0.1 10^3/uL (0.0-0.5); HEMATOCRIT 43.5 % (42.0-52.0); HEMOGLOBIN 13.8 g/dl (13.5-17.5); LYMPH % 28.7 % (24.0-44.0); MEAN CORPUSCULAR HEMOGLOBIN 28.3 pg (27.0-33.0); MEAN CORPUSCULAR HGB CONC 31.7 g/dl (32.0-36.5); MEAN CORPUSCULAR VOLUME 89.3 fl (80.0-96.0); MONO # 0.6 10^3/uL (0.0-0.8); MONO % 8.2 % (2.0-8.0); NEUTROPHILS # 4.2 10^3/uL (1.5-8.5); NEUTROPHILS % 61.3 % (36.0-66.0); PLATELET COUNT, AUTOMATED 137 10^3/uL (150-450); RED BLOOD COUNT 4.87 10^6/uL (4.30-6.10); WHITE BLOOD COUNT 6.9 10^3/uL (4.0-10.0)
[2021-06-18 17:45] LABS: INR 1.02; PROTHROMBIN TIME 13.8 SECONDS (12.7-14.5)
[2021-06-18 17:46] LABS: PARTIAL THROMBOPLASTIN TIME 31.8 SECONDS (25.9-37.0)
[2021-06-18 17:54] LABS: ALBUMIN 4.4 GM/DL (3.2-5.2); ALT/SGPT 16 U/L (12-78); BILIRUBIN,TOTAL 0.5 MG/DL (0.2-1.0); BLOOD UREA NITROGEN 12 MG/DL (7-18); CALCIUM LEVEL 9.3 MG/DL (8.5-10.1); CARBON DIOXIDE LEVEL 24 MEQ/L (21-32); CHLORIDE LEVEL 109 MEQ/L (98-107); CREATININE FOR GFR 1.02 MG/DL (0.70-1.30); FERRITIN 9 NG/ML (26-388); GLOMERULAR FILTRATION RATE > 60.0 (>56); GLUCOSE, FASTING 89 MG/DL (70-100); NT-PRO BNP 99 PG/ML (<125); POTASSIUM SERUM 4.6 MEQ/L (3.5-5.1); SODIUM LEVEL 141 MEQ/L (136-145); TOTAL PROTEIN 7.5 GM/DL (6.4-8.2)
[2021-06-18 18:16] LABS: APPEARANCE, URINE CLEAR (CLEAR); BACTERIA, URINE AUTO NEGATIVE (NEGATIVE); BILIRUBIN, URINE AUTO NEGATIVE (NEGATIVE); BLOOD, URINE BLOOD NEGATIVE (NEGATIVE); COLOR, URINE YELLOW (YELLOW); GLUCOSE, URINE (UA) AUTO NEGATIVE (NEGATIVE); KETONE, URINE AUTO TRACE mg/dL (NEGATIVE); LEUKOCYTE ESTERASE, URINE AUTO NEGATIVE (NEGATIVE); MUCUS, URINE SMALL (NEGATIVE); NITRITE, URINE AUTO NEGATIVE (NEGATIVE); PROTEIN, URINE AUTO NEGATIVE (NEGATIVE); RBC, URINE AUTO 0 /HPF (0-3); SPECIFIC GRAVITY URINE AUTO 1.016 (1.002-1.035); SQUAMOUS EPITHELIAL CELL UR AU 0 /HPF (0-6); UROBILINOGEN, URINE AUTO 0.2 mg/dL (0.0-2.0); WBC, URINE AUTO 2 /HPF (0-3)
== END ==
LOC: M PLALAB 15:42
PROVIDERS: ATTEND Family Medicine
DX: I50.32 Chronic diastolic (congestive) heart failure (principal)

== ENCOUNTER → 2022-01-03 | Outpatient (REF) | payer MEDICARE, BC, OTHER ==
[2022-01-03 18:09] LABS: APPEARANCE, URINE CLEAR (CLEAR); BACTERIA, URINE AUTO 2+ (NEGATIVE); BILIRUBIN, URINE AUTO NEGATIVE (NEGATIVE); BLOOD, URINE BLOOD NEGATIVE (NEGATIVE); COLOR, URINE YELLOW (YELLOW); GLUCOSE, URINE (UA) AUTO NEGATIVE (NEGATIVE); KETONE, URINE AUTO TRACE mg/dL (NEGATIVE); LEUKOCYTE ESTERASE, URINE AUTO 1+ (NEGATIVE); MUCUS, URINE SMALL (NEGATIVE); NITRITE, URINE AUTO NEGATIVE (NEGATIVE); PROTEIN, URINE AUTO NEGATIVE (NEGATIVE); RBC, URINE AUTO 1 /HPF (0-3); SPECIFIC GRAVITY URINE AUTO 1.019 (1.002-1.035); SQUAMOUS EPITHELIAL CELL UR AU 0 /HPF (0-6); UROBILINOGEN, URINE AUTO 0.2 mg/dL (0.0-2.0); WBC, URINE AUTO 0 /HPF (0-3)
== END ==
LOC: M SMT 16:46
PROVIDERS: ATTEND Urology
DX: N40.0 Benign prostatic hyperplasia without lower urinary tract symptoms (principal)

== ENCOUNTER → 2022-01-10 | Outpatient (CLI) | payer MEDICARE, BC, OTHER ==
[2022-01-10 17:54] LABS: BASO # 0.1 10^3/uL (0.0-0.2); BASO % 0.7 % (0.0-1.0); EOS # 0.2 10^3/uL (0.0-0.5); EOS % 2.2 % (0.0-3.0); HEMATOCRIT 39.7 % (42.0-52.0); HEMOGLOBIN 12.4 g/dl (13.5-17.5); LYMPH # 1.6 10^3/uL (1.5-5.0); LYMPH % 23.3 % (24.0-44.0); MEAN CORPUSCULAR HEMOGLOBIN 27.1 pg (27.0-33.0); MEAN CORPUSCULAR HGB CONC 31.2 g/dl (32.0-36.5); MEAN CORPUSCULAR VOLUME 86.7 fl (80.0-96.0); MONO # 0.5 10^3/uL (0.0-0.8); MONO % 7.1 % (2.0-8.0); NEUTROPHILS # 4.6 10^3/uL (1.5-8.5); NEUTROPHILS % 66.6 % (36.0-66.0); PLATELET COUNT, AUTOMATED 184 10^3/uL (150-450); RED BLOOD COUNT 4.58 10^6/uL (4.30-6.10); WHITE BLOOD COUNT 6.9 10^3/uL (4.0-10.0)
[2022-01-10 21:07] LABS: ALBUMIN 4.1 GM/DL (3.2-5.2); ALT/SGPT 23 U/L (12-78); BILIRUBIN,TOTAL 0.4 MG/DL (0.2-1.0); BLOOD UREA NITROGEN 12 MG/DL (7-18); CALCIUM LEVEL 9.2 MG/DL (8.5-10.1); CARBON DIOXIDE LEVEL 27 MEQ/L (21-32); CHLORIDE LEVEL 106 MEQ/L (98-107); CHOLESTEROL LEVEL 172 MG/DL (<200); CHOLESTEROL RISK RATIO 3.017 (<5); CREATININE FOR GFR 0.94 MG/DL (0.70-1.30); FERRITIN 10 NG/ML (26-388); GLOMERULAR FILTRATION RATE > 60.0 (>56); GLUCOSE, FASTING 75 MG/DL (70-100); HDL CHOLESTEROL 57 MG/DL (>40); LDL CHOLESTEROL 99 MG/DL (<100); LIPASE 144 U/L (73-393); MAGNESIUM LEVEL 2.1 MG/DL (1.8-2.4); NON-HDL-C 115 MG/DL; NT-PRO BNP 122 PG/ML (<125); POTASSIUM SERUM 4.3 MEQ/L (3.5-5.1); SODIUM LEVEL 140 MEQ/L (136-145); TOTAL PROTEIN 7.3 GM/DL (6.4-8.2); TRIGLYCERIDES LEVEL 81 MG/DL (<150)
[2022-01-11 00:01] LABS: HEMOGLOBIN A1c 5.2 %
== END ==
LOC: M PLALAB 15:07 → M PLAIMG 15:07
PROVIDERS: ATTEND Family Medicine
DX: S80.851D Superficial foreign body, right lower leg, subsequent encounter (principal); R73.01 Impaired fasting glucose; K21.9 Gastro-esophageal reflux disease without esophagitis; I50.32 Chronic diastolic (congestive) heart failure; D50.9 Iron deficiency anemia, unspecified; Z12.5 Encounter for screening for malignant neoplasm of prostate

== ENCOUNTER 2022-01-16 10:39 | Outpatient (CLI) | payer MEDICARE, BC, OTHER ==
[~2022-01-16] VITALS: Ht 177.8 cm; Wt 103.6 kg
[~2022-01-16 10:39] MED LIST changes: +ALBUTEROL SULFATE 2.5 MG/0.5 ML INH NEB SOLN INH PRN; +EPINEPHrine INJ 1 MG/ML 1ML AMP IM PRN; +diphenhydrAMINE 50MG/ML VIAL (J1200) IV PRN; +methylPREDNISolone 125MG 2ML VIAL IV PRN
[2022-01-16] MEDS ORDERED: NS 1,000 ML IV SCH (11:30)
[2022-01-16] MEDS ORDERED: FERRIC CARBOXYMALTOSE INJ 750 MG in NS 250 ML (>50kg) IV ONE ×3 (11:30)
[2022-01-16] MEDS ORDERED: FLOM0.4C39 PO (11:33)
[2022-01-16] MEDS ORDERED: DITR5TAB PO (11:33)
[2022-01-16] MEDS ORDERED: ASTELIN (11:34)
[2022-01-16] MEDS ORDERED: LYRI300C PO (11:35)
[2022-01-16 11:53] VITALS: BP 117/70
[2022-01-16 13:20] VITALS: BP_SYST 123
== END 2022-01-16 13:20 | disposition home or self-care (01) ==
LOC: M INFU 10:39
PROVIDERS: ATTEND Family Medicine
DX: D50.9 Iron deficiency anemia, unspecified (principal); Z88.0 Allergy status to penicillin; Z88.1 Allergy status to other antibiotic agents; Z88.8 Allergy status to other drugs, medicaments and biological substances
CPT/HCPCS: 96365; 96366; J1439

== ENCOUNTER → 2022-01-31 | Outpatient (CLI) | payer MEDICARE, BC, OTHER ==
[~2022-01-31] MED LIST changes: -ALBUTEROL SULFATE 2.5 MG/0.5 ML INH NEB SOLN INH PRN; +ASTELIN; +DITR5TAB PO; +E-Z-GAS II EFFERVESCENT PACKET (SODIUM BICARB./CITRIC ACID/SIMETHICONE) As Ordered ONE; +E-Z-HD 98% w/w 340GM SUSP BTL As Ordered ONE; +E-Z-PAQUE 96% w/w SUSP 176GM BTL As Ordered ONE; -EPINEPHrine INJ 1 MG/ML 1ML AMP IM PRN; +LYRI300C PO; -diphenhydrAMINE 50MG/ML VIAL (J1200) IV PRN; -methylPREDNISolone 125MG 2ML VIAL IV PRN
== END ==
LOC: M RAD 07:36
PROVIDERS: ATTEND Family Medicine
DX: D50.9 Iron deficiency anemia, unspecified (principal); K21.9 Gastro-esophageal reflux disease without esophagitis

== ENCOUNTER → 2022-02-01 | Outpatient (CLI) | payer MEDICARE, BC, OTHER ==
[~2022-02-01] MED LIST changes: -E-Z-GAS II EFFERVESCENT PACKET (SODIUM BICARB./CITRIC ACID/SIMETHICONE) As Ordered ONE; -E-Z-HD 98% w/w 340GM SUSP BTL As Ordered ONE; -E-Z-PAQUE 96% w/w SUSP 176GM BTL As Ordered ONE
[2022-02-01 10:48] LABS: BASO # 0.1 10^3/uL (0.0-0.2); BASO % 0.7 % (0.0-1.0); EOS # 0.2 10^3/uL (0.0-0.5); EOS % 2.3 % (0.0-3.0); HEMATOCRIT 41.3 % (42.0-52.0); HEMOGLOBIN 12.6 g/dl (13.5-17.5); LYMPH # 1.4 10^3/uL (1.5-5.0); LYMPH % 19.3 % (24.0-44.0); MEAN CORPUSCULAR HEMOGLOBIN 27.8 pg (27.0-33.0); MEAN CORPUSCULAR HGB CONC 30.5 g/dl (32.0-36.5); MONO # 0.6 10^3/uL (0.0-0.8); MONO % 8.2 % (2.0-8.0); NEUTROPHILS # 5.1 10^3/uL (1.5-8.5); PLATELET COUNT, AUTOMATED 162 10^3/uL (150-450); RED BLOOD COUNT 4.54 10^6/uL (4.30-6.10); WHITE BLOOD COUNT 7.5 10^3/uL (4.0-10.0)
[2022-02-01 11:29] LABS: FERRITIN 155 NG/ML (26-388); IRON (FE) 54 UG/DL (65-175); NT-PRO BNP 171 PG/ML (<125)
== END ==
LOC: M PLALAB 09:04
PROVIDERS: ATTEND Physician Assistant
DX: D50.9 Iron deficiency anemia, unspecified (principal); R53.83 Other fatigue

== ENCOUNTER → 2022-05-22 | Outpatient (CLI) | payer MEDICARE, BC, OTHER | LOC: M LABSMTC 10:31 | PROVIDERS: ATTEND Anesthesiology | DX: Z01.818 Encounter for other preprocedural examination (principal); Z11.52 Encounter for screening for COVID-19 ==

== ENCOUNTER → 2022-05-22 | Outpatient (CLI) | payer MEDICARE, BC, OTHER ==
[2022-05-22 14:56] LABS: BASO % 0.6 % (0.0-1.0); EOS # 0.1 10^3/uL (0.0-0.5); HEMATOCRIT 44.1 % (42.0-52.0); HEMOGLOBIN 13.8 g/dl (13.5-17.5); LYMPH # 1.8 10^3/uL (1.5-5.0); LYMPH % 26.1 % (24.0-44.0); MEAN CORPUSCULAR HEMOGLOBIN 29.3 pg (27.0-33.0); MEAN CORPUSCULAR HGB CONC 31.3 g/dl (32.0-36.5); MEAN CORPUSCULAR VOLUME 93.6 fl (80.0-96.0); MONO # 0.5 10^3/uL (0.0-0.8); MONO % 7.5 % (2.0-8.0); NEUTROPHILS # 4.3 10^3/uL (1.5-8.5); NEUTROPHILS % 63.5 % (36.0-66.0); PLATELET COUNT, AUTOMATED 140 10^3/uL (150-450); RED BLOOD COUNT 4.71 10^6/uL (4.30-6.10); WHITE BLOOD COUNT 6.8 10^3/uL (4.0-10.0)
[2022-05-22 15:21] LABS: MAGNESIUM LEVEL 1.8 MG/DL (1.8-2.4)
[2022-05-22 15:23] LABS: ALBUMIN 3.9 G/DL (3.2-5.2); ALKALINE PHOSPHATASE 123 U/L (46-116); ALT/SGPT 21 U/L (7.0-40); AST/SGOT 23 U/L (<34); BILIRUBIN,TOTAL 0.5 MG/DL (0.3-1.2); BLOOD UREA NITROGEN 13 MG/DL (9-23); CALCIUM LEVEL 9.2 MG/DL (8.5-10.1); CARBON DIOXIDE LEVEL 30 MMOL/L (20-31); CHLORIDE LEVEL 106 MMOL/L (98-107); CHOLESTEROL LEVEL 174 MG/DL (<200); CHOLESTEROL RISK RATIO 2.96 (<5); CREATININE FOR GFR 0.94 MG/DL (0.70-1.30); GLOMERULAR FILTRATION RATE > 60.0 (>56); GLUCOSE, FASTING 83 MG/DL (60-100); HDL CHOLESTEROL 58.6 MG/DL (>40); LDL CHOLESTEROL 98.2 MG/DL (<100); NON-HDL-C 115 MG/DL; POTASSIUM SERUM 5.2 MMOL/L (3.5-5.1); SODIUM LEVEL 140 MMOL/L (136-145); TOTAL PROTEIN 6.7 G/DL (5.7-8.2); TRIGLYCERIDES LEVEL 86 MG/DL (<150)
[2022-05-22 15:24] LABS: FERRITIN 14.8 NG/ML (10.5-307.3)
[2022-05-22 15:49] LABS: HEMOGLOBIN A1c 4.9 % (4.0-6.0)
[2022-05-25 00:09] LABS: INSULIN LEVEL 6.8 uIU/mL (2.6-24.9)
== END ==
LOC: M PLALAB 10:46
PROVIDERS: ATTEND Family Medicine
DX: Z12.5 Encounter for screening for malignant neoplasm of prostate (principal); D50.9 Iron deficiency anemia, unspecified; E78.00 Pure hypercholesterolemia, unspecified
CPT/HCPCS: 36415; 80053; 80061; 82172; 82728; 83010; 83036; 83525; 83735; 83880; 83883; 85025; 87635; G0103

== ENCOUNTER 2022-05-27 10:26 | Day surgery (SDC) | payer MEDICARE, BC, OTHER ==
[~2022-05-27] VITALS: Ht 177.8 cm; Wt 112.0 kg
[~2022-05-27 10:26] MED LIST changes: +NS 1,000 ML IV ONE
[2022-05-27] MEDS ORDERED: fentaNYL 100 MCG/2 ML INJECTION As Ordered ONE (12:28)
[2022-05-27] MEDS ORDERED: LIDOCAINE 2% 100MG/5ML SDV (FOR ANES.) As Ordered ONE (12:29)
[2022-05-27] MEDS ORDERED: propofoL 200 MG/20 ML VIAL As Ordered ONE ×2 (12:29→13:10)
[2022-05-27 13:42] VITALS: BP 117/72
== END 2022-05-27 14:04 | disposition home or self-care (01) ==
LOC: M OPP 10:26
PROVIDERS: ATTEND Internal Medicine Gastroenterology
DX: K63.89 Other specified diseases of intestine (principal); K64.8 Other hemorrhoids; D50.9 Iron deficiency anemia, unspecified; Z98.0 Intestinal bypass and anastomosis status; Z79.891 Long term (current) use of opiate analgesic; Z79.899 Other long term (current) drug therapy; Z88.0 Allergy status to penicillin; Z88.1 Allergy status to other antibiotic agents; Z88.5 Allergy status to narcotic agent; Z99.89 Dependence on other enabling machines and devices; G47.30 Sleep apnea, unspecified; I10 Essential (primary) hypertension; F32.9 Major depressive disorder, single episode, unspecified; F41.9 Anxiety disorder, unspecified; G43.B0 Ophthalmoplegic migraine, not intractable; Z87.442 Personal history of urinary calculi
CPT/HCPCS: 43235; 45380; 88305; J3010

== ENCOUNTER → 2022-06-05 | Outpatient (CLI) | payer MEDICARE, BC, OTHER ==
[~2022-06-05] MED LIST changes: +GLUCAGON INJ 1MG VIAL As Ordered ONE; +ISOVUE-370 76% 100ML VIAL As Ordered ONE; +NEULUMEX 0.1% SUSPENSION 450ML BOTTLE (FORMERLY VOLUMEN) As Ordered ONE; -NS 1,000 ML IV ONE
== END ==
LOC: M RAD 14:06
PROVIDERS: ATTEND Physician Assistant Medical
DX: D50.9 Iron deficiency anemia, unspecified (principal)
CPT/HCPCS: 74177; J1610; Q9967

== ENCOUNTER → 2022-06-07 | Outpatient (CLI) | payer MEDICARE, BC, OTHER ==
[~2022-06-07] MED LIST changes: -GLUCAGON INJ 1MG VIAL As Ordered ONE; -ISOVUE-370 76% 100ML VIAL As Ordered ONE; -NEULUMEX 0.1% SUSPENSION 450ML BOTTLE (FORMERLY VOLUMEN) As Ordered ONE
[2022-06-07 15:51] LABS: HEMATOCRIT 45.3 % (42.0-52.0); HEMOGLOBIN 14.4 g/dl (13.5-17.5); MEAN CORPUSCULAR HEMOGLOBIN 29.7 pg (27.0-33.0); MEAN CORPUSCULAR HGB CONC 31.8 g/dl (32.0-36.5); MEAN CORPUSCULAR VOLUME 93.4 fl (80.0-96.0); PLATELET COUNT, AUTOMATED 168 10^3/uL (150-450); RED BLOOD COUNT 4.85 10^6/uL (4.30-6.10); WHITE BLOOD COUNT 7.9 10^3/uL (4.0-10.0)
[2022-06-07 16:19] LABS: LIPASE 38 U/L (12-53)
[2022-06-07 16:22] LABS: ALBUMIN 4.3 G/DL (3.2-5.2); ALKALINE PHOSPHATASE 132 U/L (46-116); ALT/SGPT 23 U/L (7.0-40); AMYLASE 48 U/L (30-118); AST/SGOT 22 U/L (<34); BILIRUBIN,TOTAL 0.5 MG/DL (0.3-1.2); BLOOD UREA NITROGEN 13 MG/DL (9-23); CALCIUM LEVEL 9.2 MG/DL (8.5-10.1); CARBON DIOXIDE LEVEL 24 MMOL/L (20-31); CHLORIDE LEVEL 106 MMOL/L (98-107); GLOMERULAR FILTRATION RATE > 60.0 (>56); GLUCOSE, FASTING 80 MG/DL (60-100); POTASSIUM SERUM 5.1 MMOL/L (3.5-5.1); SODIUM LEVEL 141 MMOL/L (136-145)
== END ==
LOC: M PLALAB 12:57
PROVIDERS: ATTEND Physician Assistant Medical
DX: R93.3 Abnormal findings on diagnostic imaging of other parts of digestive tract (principal)

== ENCOUNTER → 2022-08-28 | Outpatient (CLI) | payer MEDICARE, BC, OTHER | LOC: M LABSMTC 10:01 | PROVIDERS: ATTEND Pain Medicine Interventional Pain Medicine | DX: Z11.52 Encounter for screening for COVID-19 (principal) ==

== ENCOUNTER → 2023-01-23 | Outpatient (REF) | payer MEDICARE, OTHER | LOC: M SFHCPLAZ 19:49 | PROVIDERS: ATTEND Family Medicine | DX: E53.8 Deficiency of other specified B group vitamins (principal); K76.0 Fatty (change of) liver, not elsewhere classified ==

== ENCOUNTER 2023-01-30 12:52 | Outpatient (CLI) | payer MEDICARE, OTHER, BC ==
[~2023-01-30] VITALS: Ht 177.8 cm; Wt 104.5 kg
[~2023-01-30 12:52] MED LIST changes: +ALBUTEROL SULFATE 2.5MG/0.5ML INH NEB SOLN INH PRN; +EPINEPHrine INJ 1 MG/ML 1ML AMP IM PRN; +diphenhydrAMINE 50MG/ML VIAL IV PRN; +methylPREDNISolone 125MG 2ML VIAL IV PRN
[2023-01-30 13:25] VITALS: BP 115/64; O2SAT 96
[2023-01-30] MEDS ORDERED: NS 1,000 ML IV SCH (14:00)
[2023-01-30] MEDS ORDERED: FERRIC CARBOXYMALTOSE INJ 750 MG in NS 250 ML (>50kg) IV ONE ×3 (14:00)
[2023-01-30 15:13] VITALS: BP 119/75; O2SAT 98
== END 2023-01-30 15:10 ==
LOC: M INFU 12:52
PROVIDERS: ATTEND Family Medicine
DX: D50.9 Iron deficiency anemia, unspecified (principal); Z88.0 Allergy status to penicillin; Z88.1 Allergy status to other antibiotic agents; Z88.8 Allergy status to other drugs, medicaments and biological substances
CPT/HCPCS: 96365; J1439

== ENCOUNTER 2023-02-06 15:15 | Outpatient (CLI) | payer MEDICARE, BC, OTHER ==
[~2023-02-06] VITALS: Ht 177.8 cm; Wt 104.0 kg
[2023-02-06 15:00] VITALS: BP 122/67; O2SAT 100
[2023-02-06] MEDS ORDERED: NS 1,000 ML IV SCH (15:20)
[2023-02-06] MEDS ORDERED: FERRIC CARBOXYMALTOSE INJ 750 MG in NS 250 ML (>50kg) IV ONE ×3 (15:20)
[2023-02-06 17:02] VITALS: BP 132/86; O2SAT 98
== END 2023-02-06 17:00 ==
LOC: M INFU 15:15
PROVIDERS: ATTEND Family Medicine
DX: D50.9 Iron deficiency anemia, unspecified (principal); Z88.0 Allergy status to penicillin; Z88.1 Allergy status to other antibiotic agents; Z88.8 Allergy status to other drugs, medicaments and biological substances
CPT/HCPCS: 96365; J1439

== ENCOUNTER → 2023-05-23 | Outpatient (CLI) | payer MEDICARE, BC, OTHER ==
[~2023-05-23] MED LIST changes: -ALBUTEROL SULFATE 2.5MG/0.5ML INH NEB SOLN INH PRN; -EPINEPHrine INJ 1 MG/ML 1ML AMP IM PRN; -diphenhydrAMINE 50MG/ML VIAL IV PRN; -methylPREDNISolone 125MG 2ML VIAL IV PRN
[2023-05-23 14:03] LABS: EOS # 0.1 10^3/uL (0.0-0.5); EOS % 3.2 % (0.0-3.0); HEMATOCRIT 42.9 % (42.0-52.0); HEMOGLOBIN 13.9 g/dl (13.5-17.5); LYMPH # 1.5 10^3/uL (1.5-5.0); LYMPH % 37.5 % (24.0-44.0); MEAN CORPUSCULAR HGB CONC 32.4 g/dl (32.0-36.5); MEAN CORPUSCULAR VOLUME 98.8 fl (80.0-96.0); MONO # 0.7 10^3/uL (0.0-0.8); MONO % 17.4 % (2.0-8.0); NEUTROPHILS # 1.6 10^3/uL (1.5-8.5); NEUTROPHILS % 40.2 % (36.0-66.0); PLATELET COUNT, AUTOMATED 169 10^3/uL (150-450); RED BLOOD COUNT 4.34 10^6/uL (4.30-6.10); WHITE BLOOD COUNT 4.1 10^3/uL (4.0-10.0)
[2023-05-23 14:08] LABS: FERRITIN 171.8 NG/ML (10.5-307.3)
[2023-05-23 14:11] LABS: VITAMIN B12 LEVEL 851 PG/ML (211-911)
[2023-05-23 14:13] LABS: ALKALINE PHOSPHATASE 118 U/L (46-116); ALT/SGPT 29 U/L (7.0-40); AST/SGOT 21 U/L (<34); BILIRUBIN,TOTAL 0.4 MG/DL (0.3-1.2); BLOOD UREA NITROGEN 13 MG/DL (9-23); CALCIUM LEVEL 9.4 MG/DL (8.5-10.1); CARBON DIOXIDE LEVEL 25 MMOL/L (20-31); CHLORIDE LEVEL 109 MMOL/L (98-107); GLOMERULAR FILTRATION RATE > 60.0 (>56); GLUCOSE, FASTING 88 MG/DL (60-100); POTASSIUM SERUM 4.4 MMOL/L (3.5-5.1); SODIUM LEVEL 141 MMOL/L (136-145); TOTAL PROTEIN 6.3 G/DL (5.7-8.2)
== END ==
LOC: M PLALAB 09:43
PROVIDERS: ATTEND Family Medicine
DX: E53.8 Deficiency of other specified B group vitamins (principal); K76.0 Fatty (change of) liver, not elsewhere classified

== ENCOUNTER → 2023-09-12 | Outpatient (REF) | payer MEDICARE, BC | LOC: M SFHCPLAZ 16:56 | PROVIDERS: ATTEND Family Medicine | DX: D50.9 Iron deficiency anemia, unspecified (principal); I50.32 Chronic diastolic (congestive) heart failure; E78.2 Mixed hyperlipidemia; R73.01 Impaired fasting glucose; Z12.5 Encounter for screening for malignant neoplasm of prostate ==

== ENCOUNTER → 2023-09-17 | Outpatient (CLI) | payer MEDICARE, BC ==
[2023-09-17 13:28] LABS: BASO % 0.9 % (0.0-1.0); EOS # 0.1 10^3/uL (0.0-0.5); EOS % 3.3 % (0.0-3.0); HEMATOCRIT 42.9 % (42.0-52.0); LYMPH # 1.4 10^3/uL (1.5-5.0); LYMPH % 32.5 % (24.0-44.0); MEAN CORPUSCULAR HEMOGLOBIN 31.7 pg (27.0-33.0); MEAN CORPUSCULAR HGB CONC 32.6 g/dl (32.0-36.5); MEAN CORPUSCULAR VOLUME 97.3 fl (80.0-96.0); MONO # 0.6 10^3/uL (0.0-0.8); MONO % 14.4 % (2.0-8.0); NEUTROPHILS # 2.1 10^3/uL (1.5-8.5); NEUTROPHILS % 48.7 % (36.0-66.0); PLATELET COUNT, AUTOMATED 171 10^3/uL (150-450); RED BLOOD COUNT 4.41 10^6/uL (4.30-6.10); WHITE BLOOD COUNT 4.3 10^3/uL (4.0-10.0)
[2023-09-17 13:30] LABS: ALKALINE PHOSPHATASE 126 U/L (46-116); ALT/SGPT 36 U/L (7.0-40); AST/SGOT 22 U/L (<34); BILIRUBIN,TOTAL 0.4 MG/DL (0.3-1.2); BLOOD UREA NITROGEN 13 MG/DL (9-23); CARBON DIOXIDE LEVEL 27 MMOL/L (20-31); CHLORIDE LEVEL 107 MMOL/L (98-107); CHOLESTEROL LEVEL 175 MG/DL (<200); CHOLESTEROL RISK RATIO 3.03 (<5); CREATININE FOR GFR 0.99 MG/DL (0.70-1.30); GLOMERULAR FILTRATION RATE > 60.0 (>56); GLUCOSE, FASTING 103 MG/DL (60-100); HDL CHOLESTEROL 57.6 MG/DL (>40); LDL CHOLESTEROL 96.8 MG/DL (<100); MAGNESIUM LEVEL 1.8 MG/DL (1.8-2.4); NON-HDL-C 117.4 MG/DL; POTASSIUM SERUM 4.6 MMOL/L (3.5-5.1); PSA SCREENING 1.18 NG/ML (< 4.00); SODIUM LEVEL 141 MMOL/L (136-145); TOTAL PROTEIN 6.6 G/DL (5.7-8.2); TRIGLYCERIDES LEVEL 103 MG/DL (<150)
[2023-09-17 13:32] LABS: FERRITIN 165.7 NG/ML (10.5-307.3)
[2023-09-17 13:58] LABS: HEMOGLOBIN A1c 4.8 % (4.0-6.0)
== END ==
LOC: M PLALAB 09:55
PROVIDERS: ATTEND Family Medicine
DX: D50.9 Iron deficiency anemia, unspecified (principal); E78.00 Pure hypercholesterolemia, unspecified; Z12.5 Encounter for screening for malignant neoplasm of prostate
CPT/HCPCS: 36415; 80053; 80061; 82728; 83036; 83735; 85025; G0103

== ENCOUNTER → 2024-01-22 | Outpatient (REF) | payer MEDICARE, BC ==
[~2024-01-22] MED LIST changes: +DOXY-323 PO; -DOXY-443 PO; -RAMI1CAP24 PO; +RAMI5CAP60 PO
== END ==
LOC: M SFHCPLAZ 17:23
PROVIDERS: ATTEND Family Medicine
DX: D50.9 Iron deficiency anemia, unspecified (principal); I50.32 Chronic diastolic (congestive) heart failure; E78.2 Mixed hyperlipidemia; R73.01 Impaired fasting glucose

== ENCOUNTER → 2024-02-12 | Outpatient (REF) | payer MEDICARE, BC | LOC: M SFHCPLAZ 16:03 | PROVIDERS: ATTEND Family Medicine | DX: R39.11 Hesitancy of micturition (principal); Z53.9 Procedure and treatment not carried out, unspecified reason ==

== ENCOUNTER → 2024-02-20 | Outpatient (CLI) | payer MEDICARE, BC ==
[2024-02-20 12:27] LABS: BASO % 0.9 % (0.0-1.0); EOS # 0.1 10^3/uL (0.0-0.5); EOS % 3.7 % (0.0-3.0); HEMATOCRIT 43.2 % (42.0-52.0); LYMPH # 1.2 10^3/uL (1.5-5.0); LYMPH % 37.3 % (24.0-44.0); MEAN CORPUSCULAR HEMOGLOBIN 31.5 pg (27.0-33.0); MEAN CORPUSCULAR HGB CONC 32.4 g/dl (32.0-36.5); MEAN CORPUSCULAR VOLUME 97.1 fl (80.0-96.0); MONO # 0.6 10^3/uL (0.0-0.8); MONO % 17.7 % (2.0-8.0); NEUTROPHILS # 1.3 10^3/uL (1.5-8.5); NEUTROPHILS % 40.1 % (36.0-66.0); PLATELET COUNT, AUTOMATED 163 10^3/uL (150-450); RED BLOOD COUNT 4.45 10^6/uL (4.30-6.10); WHITE BLOOD COUNT 3.3 10^3/uL (4.0-10.0)
[2024-02-20 12:30] LABS: APPEARANCE, URINE CLEAR (CLEAR); BACTERIA, URINE AUTO NEGATIVE (NEGATIVE); BILIRUBIN, URINE AUTO NEGATIVE (NEGATIVE); BLOOD, URINE BLOOD NEGATIVE (NEGATIVE); COLOR, URINE STRAW (YELLOW); GLUCOSE, URINE (UA) AUTO NEGATIVE (NEGATIVE); KETONE, URINE AUTO NEGATIVE (NEGATIVE); LEUKOCYTE ESTERASE, URINE AUTO NEGATIVE (NEGATIVE); NITRITE, URINE AUTO NEGATIVE (NEGATIVE); PROTEIN, URINE AUTO NEGATIVE (NEGATIVE); RBC, URINE AUTO 0 /HPF (0-3); SPECIFIC GRAVITY URINE AUTO 1.003 (1.002-1.035); SQUAMOUS EPITHELIAL CELL UR AU 0 /HPF (0-6); UROBILINOGEN, URINE AUTO 0.2 mg/dL (0.0-2.0); WBC, URINE AUTO 1 /HPF (0-3)
[2024-02-20 12:48] LABS: HEMOGLOBIN A1c 4.6 % (4.0-6.0)
[2024-02-20 12:59] LABS: ALBUMIN 4.4 G/DL (3.2-5.2); ALKALINE PHOSPHATASE 123 U/L (46-116); ALT/SGPT 22 U/L (7.0-40); AST/SGOT 14 U/L (<34); BILIRUBIN,TOTAL 0.6 MG/DL (0.3-1.2); BLOOD UREA NITROGEN 13 MG/DL (9-23); CALCIUM LEVEL 9.4 MG/DL (8.3-10.6); CARBON DIOXIDE LEVEL 26 MMOL/L (20-31); CHLORIDE LEVEL 108 MMOL/L (98-107); CHOLESTEROL LEVEL 193 MG/DL (<200); CHOLESTEROL RISK RATIO 2.99 (<5); GLOMERULAR FILTRATION RATE > 60.0 (>49); GLUCOSE, FASTING 85 MG/DL (74-106); HDL CHOLESTEROL 64.4 MG/DL (>40); LDL CHOLESTEROL 105.4 MG/DL (<100); NON-HDL-C 128.6 MG/DL; POTASSIUM SERUM 4.3 MMOL/L (3.5-5.1); SODIUM LEVEL 140 MMOL/L (136-145); TOTAL PROTEIN 6.9 G/DL (5.7-8.2); TRIGLYCERIDES LEVEL 116 MG/DL (<150)
[2024-02-20 13:00] LABS: FREE T4 0.87 NG/DL (0.89-1.76)
[2024-02-20 13:01] LABS: FERRITIN 181.8 NG/ML (10.5-307.3); THYROID STIMULATING HORMONE 1.518 uIU/ML (0.55-4.78)
== END ==
LOC: M LAB 11:32 → M PLALAB 11:32
PROVIDERS: ATTEND Family Medicine
DX: D50.9 Iron deficiency anemia, unspecified (principal); I50.32 Chronic diastolic (congestive) heart failure; E78.2 Mixed hyperlipidemia; K74.00 Hepatic fibrosis, unspecified; R73.01 Impaired fasting glucose; R39.11 Hesitancy of micturition

== ENCOUNTER → 2024-02-27 | Outpatient (CLI) | payer MEDICARE, BC | LOC: M PLAIMG 09:45 | PROVIDERS: ATTEND Family Medicine | DX: I34.0 Nonrheumatic mitral (valve) insufficiency (principal) ==

== ENCOUNTER → 2024-07-16 | Outpatient (CLI) | payer MEDICARE, OTHER ==
[~2024-07-16] MED LIST changes: -DOXY-323 PO; +DOXY-441 PO
[2024-07-16 16:16] LABS: BASO % 0.7 % (0.0-1.0); EOS # 0.1 10^3/uL (0.0-0.5); EOS % 1.3 % (0.0-3.0); HEMATOCRIT 43.4 % (42.0-52.0); HEMOGLOBIN 13.7 g/dl (13.5-17.5); LYMPH # 1.3 10^3/uL (1.5-5.0); LYMPH % 21.5 % (24.0-44.0); MEAN CORPUSCULAR HEMOGLOBIN 30.7 pg (27.0-33.0); MEAN CORPUSCULAR HGB CONC 31.6 g/dl (32.0-36.5); MEAN CORPUSCULAR VOLUME 97.3 fl (80.0-96.0); MONO # 0.5 10^3/uL (0.0-0.8); MONO % 7.7 % (2.0-8.0); NEUTROPHILS # 4.1 10^3/uL (1.5-8.5); NEUTROPHILS % 68.5 % (36.0-66.0); PLATELET COUNT, AUTOMATED 184 10^3/uL (150-450); RED BLOOD COUNT 4.46 10^6/uL (4.30-6.10)
[2024-07-16 16:26] LABS: ALBUMIN 3.9 G/DL (3.2-5.2); ALKALINE PHOSPHATASE 109 U/L (40-129); ALT/SGPT 29 U/L (7.0-40); AST/SGOT 21 U/L (<34); BILIRUBIN,TOTAL 0.5 MG/DL (0.3-1.2); BLOOD UREA NITROGEN 12 MG/DL (9-23); CALCIUM LEVEL 8.8 MG/DL (8.3-10.6); CARBON DIOXIDE LEVEL 29 MMOL/L (20-31); CHLORIDE LEVEL 106 MMOL/L (98-107); CHOLESTEROL LEVEL 180 MG/DL (<200); CHOLESTEROL RISK RATIO 2.97 (<5); CREATININE FOR GFR 1.05 MG/DL (0.70-1.30); GLOMERULAR FILTRATION RATE > 60.0 (>49); GLUCOSE, FASTING 98 MG/DL (74-106); HDL CHOLESTEROL 60.6 MG/DL (>40); LDL CHOLESTEROL 103.2 MG/DL (<100); NON-HDL-C 119.4 MG/DL; POTASSIUM SERUM 5.1 MMOL/L (3.5-5.1); SODIUM LEVEL 143 MMOL/L (136-145); TOTAL PROTEIN 6.5 G/DL (5.7-8.2); TRIGLYCERIDES LEVEL 81 MG/DL (<150)
[2024-07-16 16:33] LABS: FERRITIN 138.1 NG/ML (10.5-307.3); VITAMIN B12 LEVEL 1165 PG/ML (211-911)
== END ==
LOC: M PLALAB 09:35
PROVIDERS: ATTEND Family Medicine
DX: E53.8 Deficiency of other specified B group vitamins (principal); E78.2 Mixed hyperlipidemia; D50.9 Iron deficiency anemia, unspecified

== ENCOUNTER → 2024-08-12 | Outpatient (CLI) | payer MEDICARE, BC | LOC: M RAD 08-03 09:46 | PROVIDERS: ATTEND Family Medicine | DX: N20.0 Calculus of kidney (principal) ==

== ENCOUNTER → 2025-04-12 | Outpatient (CLI) | payer MEDICARE, BC ==
[~2025-04-12] MED LIST changes: -FLOM0.4C39 PO; +TAMS-18 PO; +ZOLP10TA11 PO; -ZOLP10TA2 PO
== END ==
LOC: M PLALAB 10:07
PROVIDERS: ATTEND Family Medicine
DX: K74.00 Hepatic fibrosis, unspecified (principal); Z98.84 Bariatric surgery status